=== PATIENT | female | born 1980 | race American Indian/Alaskan Native ===

== ENCOUNTER 2019-12-03 01:52 | Inpatient (IN) | payer MEDICARE ==
[2019-12-03] MEDS ORDERED: ALBUTEROL 2.5 MG/3 ML NEBU IH ONE (02:13)
[2019-12-03] MEDS ORDERED: methylPREDNISolone Sod Succinate 125 MG/2 ML INJ IV ONE (02:13)
[2019-12-03] MEDS ORDERED: NITROGLYCERIN 2% OINT 1 GM TP ONE (02:13)
[2019-12-03] MEDS ORDERED: IPRATROPIUM 0.02% NEBU 2.5 ML IH ONE (02:13)
--- NOTE | 2019-12-03 02:21 | Emergency Department Report ---
ED General Adult HPI - General Chief complaint: Dyspnea/Respdistress Stated complaint: SONI Time Seen by Provider: 12/03/19 01:57 Source: patient, EMS ( EMS documentation not available at time of chart dictation ), RN notes reviewed, old records reviewed Mode of arrival: Stretcher Limitations: Physical Limitation - History of Present Illness Initial comments: Nephrology: Dr Abdulaziz carranza Primary care doctor: Patient cannot remember Cardiology: Patient cannot remember Past medical history: Hypertension, end-stage renal disease on hemodialysis, Tuesday, Tuesday, Tuesday, COPD, admitted to this hospital last month for respiratory failure requiring intubation. Had a negative cardiac nuclear stress test, had a type II myocardial infarction, ejection fraction 45 to 50%, admitting diagnoses were acute hypoxemic respiratory failure, pulmonary edema, volume overload, sinus tachycardia, hypertensive urgency, hyperkalemia, anemia of chronic disease, tobacco use, marijuana use and anxiety Patient is a 39-year-old female who is not known to myself previously. It is currently Tuesday morning. She received hemodialysis on Tuesday. She indicates it was Her usual length and duration. She is brought to the hospital by emergency medical services for shortness of breath. Patient states that approximately 1 week after she was discharged from the hospital, she developed recurrent shortness of breath. Is typically at nighttime. She reports that she feels like she is not breathing well at night, and occasionally jerks up while breathing. This is intermittent, and typically painless. She recently saw her manufacturing support engineer, who put her on a medication for "cardiac asthma." She does not know the name of the medication. She does not know the name of the manufacturing support engineer. This evening, she was having shortness of breath, then chest tightness which did not radiate anywhere, and emergency medical services were contacted. Apparently they put her on CPAP. The patient is still on a BiPAP at this time. She denies vomiting, fever, she has abdominal cramping, she denies focal extremity weakness and or numbness. Currently, her breathing is still short as per the patient. -: Gradual Location: chest Radiation: non-radiation Quality: other Consistency: other Improves with: other Worsens with: other Associated Symptoms: other - Related Data Home Medications Medication Instructions Recorded Confirmed Last Taken ALPRAZolam 0.5 mg PO 3XW 10/31/19 12/03/19 10/27/19 10:00 Citalopram 20 mg PO DAILY 10/31/19 12/03/19 10/27/19 Lanthanum Carbonate 1,000 mg PO TID 10/31/19 12/03/19 10/27/19 17:00 Varenicline(Nf) [Chantix (Nf)] 0.5 mg PO DAILY 10/31/19 12/03/19 10/27/19 10:00 Isosorbide Mononitrate 30 mg PO QAM 12/03/19 12/03/19 Unknown Metoprolol [Lopressor TAB] 50 mg PO DAILY 12/03/19 12/03/19 Unknown Omeprazole 20 mg PO DAILY 12/03/19 12/03/19 Unknown lamoTRIgine [LaMICtal] 25 mg PO QDAY 12/03/19 12/03/19 Unknown megestroL [Megace] 20 mg PO QID 12/03/19 12/03/19 Unknown Previous Rx's Medication Instructions Recorded Last Taken Type traMADoL [Ultram] 50 mg PO Q6HR PRN #10 tablet 11/01/19 Unknown Rx Allergies Allergy/AdvReac Type Severity Reaction Status Date / Time No Known Allergies Allergy Verified 10/29/19 03:28 ED Review of Systems ROS: Stated complaint: SONI Other details as noted in HPI Constitutional: malaise. denies: fever Eyes: denies: eye discharge ENT: denies: congestion Respiratory: shortness of breath Cardiovascular: denies: syncope Gastrointestinal: denies: vomiting Genitourinary: as per HPI Musculoskeletal: myalgia Skin: as per HPI Neurological: as per HPI, weakness Psychiatric: as per HPI Hematological/Lymphatic: as per HPI ED Past Medical Hx - Past Medical History Previous Medical History?: Yes Hx Hypertension: Yes Hx Renal Disease: Yes (ESRD on dyalisis) Hx COPD: Yes - Surgical History Past Surgical History?: Yes Additional Surgical History: fistula left upper arm - Social History Smoking Status: Unknown if ever smoked - Medications Home Medications: Home Medications Medication Instructions Recorded Confirmed Last Taken Type ALPRAZolam 0.5 mg PO 3XW 10/31/19 12/03/19 10/27/19 10:00 History Citalopram 20 mg PO DAILY 10/31/19 12/03/19 10/27/19 History Lanthanum Carbonate 1,000 mg PO TID 10/31/19 12/03/19 10/27/19 17:00 History Varenicline(Nf) [Chantix (Nf)] 0.5 mg PO DAILY 10/31/19 12/03/19 10/27/19 10:00 History traMADoL [Ultram] 50 mg PO Q6HR PRN #10 tablet 11/01/19 12/03/19 Unknown Rx Isosorbide Mononitrate 30 mg PO QAM 12/03/19 12/03/19 Unknown History Metoprolol [Lopressor TAB] 50 mg PO DAILY 12/03/19 12/03/19 Unknown History Omeprazole 20 mg PO DAILY 12/03/19 12/03/19 Unknown History lamoTRIgine [LaMICtal] 25 mg PO QDAY 12/03/19 12/03/19 Unknown History megestroL [Megace] 20 mg PO QID 12/03/19 12/03/19 Unknown History ED Physical Exam - General General appearance: alert, anxious, lethargic, in distress, obese - Head Head exam: Present: atraumatic, normocephalic - Eye Eye exam: Present: normal appearance, EOMI. Absent: nystagmus - ENT ENT exam: Present: normal exam, mucous membranes moist, normal external ear exam - Neck Neck exam: Present: normal inspection, full ROM. Absent: tenderness, meningismus - Respiratory Respiratory exam: Present: respiratory distress, decreased breath sounds. Absent: wheezes, rales, rhonchi, stridor - Cardiovascular Cardiovascular Exam: Present: normal rhythm, tachycardia, normal heart sounds, JVD. Absent: systolic murmur, diastolic murmur, rubs, gallop - GI/Abdominal GI/Abdominal exam: Present: soft. Absent: distended, tenderness, guarding, rebound, rigid, pulsatile mass - Extremities Exam Extremities exam: Present: normal inspection, full ROM, other (2+ pulses noted in the bilateral upper and lower extremities. There is no palpable cord. negative Homans sign. Muscular compartments are soft. The pelvis is stable.). Absent: pedal edema, calf tenderness - Back Exam Back exam: Present: normal inspection, full ROM. Absent: tenderness, CVA tenderness (R), CVA tenderness (L), paraspinal tenderness, vertebral tenderness - Neurological Exam Neurological exam: Present: alert, other (There is no facial droop. The tongue is midline. Extraocular movements are intact bilaterally. There is 5 out of 5 strength in bilateral upper and lower extremities. Sensation is intact to light touch bilateral upper and lower extremities. ). Absent: motor sensory deficit - Psychiatric Psychiatric exam: Present: anxious - Skin Skin exam: Present: warm, dry, intact, normal color. Absent: rash ED Course Vital Signs 12/03/19 12/03/19 12/03/19 01:54 01:57 02:00 Temperature Pulse Rate 112 H 107 H Pulse Rate [ Bilateral Throughout] Respiratory 14 31 H Rate Respiratory Rate [Bilateral Throughout] Blood Pressure 166/102 166/102 180/102 O2 Sat by Pulse 97 98 100 Oximetry 12/03/19 12/03/19 12/03/19 02:10 02:16 02:23 Temperature Pulse Rate 100 H 98 H 99 H Pulse Rate [ Bilateral Throughout] Respiratory 24 23 Rate Respiratory Rate [Bilateral Throughout] Blood Pressure 180/102 197/98 197/98 O2 Sat by Pulse 100 100 Oximetry 12/03/19 12/03/19 12/03/19 02:29 02:30 02:35 Temperature 98.4 F Pulse Rate Pulse Rate [ 102 H Bilateral Throughout] Respiratory Rate Respiratory 24 Rate [Bilateral Throughout] Blood Pressure 160/107 O2 Sat by Pulse 100 Oximetry 12/03/19 12/03/19 12/03/19 02:46 03:16 03:30 Temperature Pulse Rate 96 H 94 H 94 H Pulse Rate [ Bilateral Throughout] Respiratory 22 24 27 H Rate Respiratory Rate [Bilateral Throughout] Blood Pressure 160/107 158/108 158/96 O2 Sat by Pulse 100 100 100 Oximetry 12/03/19 12/03/19 03:46 04:00 Temperature Pulse Rate 96 H Pulse Rate [ Bilateral Throughout] Respiratory 31 H 31 H Rate Respiratory Rate [Bilateral Throughout] Blood Pressure 158/96 161/89 O2 Sat by Pulse 100 100 Oximetry - Reevaluation(s) Reevaluation #1: 12/03/19 02:20 Differential diagnosis, including but not limited to: Fluid overload, hy perkalemia, azotemia, uremia, flash pulmonary edema, COPD exacerbation, anxiety, pneumonia Assessment and plan: 39-year-old female with acute on chronic shortness of breath, chest tightness, hypertensive, and tachycardic. She is currently on CPAP. We will treat her symptoms, transition her to BiPAP, obtain x-ray, screening laboratory studies, performed trial nitroglycerin, and then reassess. Reevaluation #2: 12/03/19 03:28 Patient not able to tolerate ABG procedure. Feeling improved on BiPAP. Laboratory studies reviewed and appreciated. X-ray suggests fluid o verload/pulmonary vascular congestion. Blood pressure in the 160s. Her life enrichment manager will be paged. Discussed with hospital physician, Dr. León, who has accepted the patient to the medical service for fluid overload, hypertensive urgency, and acute shortness of breath/COPD ED Medical Decision Making - Lab Data Result diagrams: 12/03/19 02:39 12/03/19 02:39 Vital Signs 12/03/19 01:57 Pulse Rate 112 H Respiratory 14 Rate Blood Pressure 166/102 O2 Sat by Pulse 98 Oximetry - EKG Data -: EKG Interpreted by Ma Rate: tachycardia - EKG Data 12/03/19 02:21 Sinus tachycardia, 108 bpm, normal axis, QTC prolonged, biphasic T waves V2, abnormal EKG, not a STEMI - Radiology Data Radiology results: pending, report reviewed, image reviewed Print Report Referring Physician: BETSY GARCIA Patient Name: FLOYD ADAMS Date of : 1980 Sex: Female Report Date: 2019-12-03 Report Status: Finalized Findings [facility] [address] [place] [address] XRay Report Signed Patient: FLOYD ADAMS MR#: [id number] : 1980 Acct:[id number] Age/Sex: 39 / F ADM Date: 12/03/19 Loc: ED Attending Dr: Ordering Physician: BETSY GARCIA MD Date of Service: 12/03/19 Procedure(s): XR chest 1V ap Accession Number(s): [id number] cc: BETSY GARCIA MD Fluoro Time In Minutes: CHEST 1 VIEW INDICATION / CLINICAL INFORMATION: Dyspnea. COMPARISON: 10/30/2019 FINDINGS: SUPPORT DEVICES: None. HEART / MEDIASTINUM: Cardiac silhouette appears slightly enlarged but stable. LUNGS / PLEURA: Pulmonary vascular congestion. Very small right pleural effusion. No evidence of pneumonia. No pneumothorax. ADDITIONAL FINDINGS: No significant additional findings. IMPRESSION: 1. Pulmonary vascular congestion without overt interstitial pulmonary edema. Small right pleural effusion. Signer Name: Keturah Mora MD Signed: 12/03/2019 4:05 AM Workstation Name: [id number] Transcribed By: Dictated By: Keturah Mora MD Electronically Authenticated By: Keturah Mora MD Signed Date/Time: 12/03/19 0405 Critical Care Time: Yes Critical care time in (mins) excluding proc time.: 35 Critical care attestation.: If time is entered above; I have spent that time in minutes in the direct care of this critically ill patient, excluding procedure time. ED Disposition Clinical Impression: End stage renal disease on dialysis, Volume overload, Hypertensive urgency, malignant Disposition: OP ADMIT IP TO THIS HOSP Is pt being admited?: Yes Does the pt Need Aspirin: Yes Condition: Stable Referrals: PRIMARY CARE, [Primary Care Provider] - 3-5 Days
[2019-12-03 02:56] LABS: Basophils # (Auto) 0.1 K/mm3 (0.0-0.1); Basophils % (Auto) 0.9 % (0.0-1.8); Eosinophils # (Auto) 0.2 K/mm3 (0.0-0.4); Eosinophils % (Auto) 2.9 % (0.0-4.3); Hematocrit 30.2 % (30.3-42.9); Hemoglobin 10.1 gm/dl (10.1-14.3); Lymphocytes # (Auto) 1.5 K/mm3 (1.2-5.4); Mean Corpuscular HGB Conc 33 % (30-34); Mean Corpuscular Volume 88 fl (79-97); Monocytes # (Auto) 0.7 K/mm3 (0.0-0.8); Platelet Count 321 K/mm3 (140-440); Red Blood Count 3.41 M/mm3 (3.65-5.03); Red Cell Distribution Width 17.5 % (13.2-15.2)
[2019-12-03 03:17] LABS: INR 1.03 (0.87-1.13); Partial Thromboplastin Time 27.6 Sec. (24.2-36.6)
[2019-12-03 03:23] LABS: Alanine Aminotransferase 49 units/L (7-56); Albumin 3.9 g/dL (3.9-5); BUN/Creatinine Ratio 5; Blood Urea Nitrogen 47 mg/dL (7-17); Calcium 9.2 mg/dL (8.4-10.2); Hemolysis Index 7
[2019-12-03] MEDS ORDERED: ASPIRIN 81 MG TAB CHEW PO ONE (03:29)
--- NOTE | 2019-12-03 04:10 | XRay Report ---
CHEST 1 VIEW INDICATION / CLINICAL INFORMATION: Dyspnea. COMPARISON: 10/30/2019 FINDINGS: SUPPORT DEVICES: None. HEART / MEDIASTINUM: Cardiac silhouette appears slightly enlarged but stable. LUNGS / PLEURA: Pulmonary vascular congestion. Very small right pleural effusion. No evidence of pneu monia. No pneumothorax. ADDITIONAL FINDINGS: No significant additional findings. IMPRESSION: 1. Pulmonary vascular congestion without overt interstitial pulmonary edema. Small right pleural effu beryl. Signer Name: Keturah Mora MD Signed: 12/03/2019 4:05 AM Workstation Name: [id number]
[2019-12-03] MEDS ORDERED: MORPHINE 2 MG/1 ML INJ IV PRN (05:16)
[2019-12-03] MEDS ORDERED: FUROSEMIDE 40 MG/4 ML INJ IV STA (05:16)
[2019-12-03] MEDS ORDERED: ONDANSETRON 4 MG/2 ML INJ IV PRN (05:16)
[2019-12-03] MEDS ORDERED: ALBUTEROL 2.5 MG/3 ML NEBU IH PRN (05:16)
[2019-12-03] MEDS ORDERED: NALOXONE 0.4 MG/1 ML INJ IV PRN (05:16)
[2019-12-03] MEDS ORDERED: ACETAMINOPHEN 325 MG TAB PO PRN (05:16)
[2019-12-03] MEDS ORDERED: hydrALAZINE 20 MG/1 ML INJ IV PRN (05:22)
--- NOTE | 2019-12-03 05:39 | History and Physical Report ---
History of Present Illness Date of examination: 12/03/19 Chief complaint: SOB History of present illness: Patient is a 39-year-old female with PMH of HTN, COPD, ESRD, on MWF regimen who presents with c/o sudden onset of SOB. She says she could barely breath. EMS was summoned and she was brought to the hospital. She reports that she last received hemodialysis on Tuesday, three days ago. She indicates it was Her usual FULL HD and that she completed the session and that she does not drink too much fluids. She is brought to the hospital by emergency medical services for shortness of breath. Patient states that approximately 1 week after she was discharged from the hospital, she developed recurrent shortness of breath. Is typically at nighttime. She reports that she feels like she is not breathing well at night, and occasionally jerks up while breathing. This is intermittent, and typically painless. She recently saw her botany laboratory assistant, who put her on a medication for "cardiac asthma." She does not know the name of the medication. She does not know the name of the botany laboratory assistant either. This evening, she was having shortness of breath, then chest tightness which did not radiate anywhere, and emergency medical services were contacted. Apparently they put her on CPAP. The patient is still on a BiPAP at this time. She denies dysuria, melena, hematochezia, hematemesis, vomiting, fever, she has abdominal cramping, she denies focal extremity weakness and or numbness. Currently, her breathing is still short as per the patient. OF note, pt was admitted to this hospital last month for respiratory failure requiring intubation. Past History Past Medical History: ESRD, hypertension Social history: smoking, full code Family history: hypertension Medications and Allergies Allergies Allergy/AdvReac Type Severity Reaction Status Date / Time No Known Allergies Allergy Verified 10/29/19 03:28 Home Medications Medication Instructions Recorded Confirmed Last Taken Type ALPRAZolam 0.5 mg PO 3XW 10/31/19 12/03/19 10/27/19 10:00 History Citalopram 20 mg PO DAILY 10/31/19 12/03/19 10/27/19 History Lanthanum Carbonate 1,000 mg PO TID 10/31/19 12/03/19 10/27/19 17:00 History Varenicline(Nf) [Chantix (Nf)] 0.5 mg PO DAILY 10/31/19 12/03/19 10/27/19 10:00 History traMADoL [Ultram] 50 mg PO Q6HR PRN #10 tablet 11/01/19 12/03/19 Unknown Rx Isosorbide Mononitrate 30 mg PO QAM 12/03/19 12/03/19 Unknown History Metoprolol [Lopressor TAB] 50 mg PO DAILY 12/03/19 12/03/19 Unknown History Omeprazole 20 mg PO DAILY 12/03/19 12/03/19 Unknown History lamoTRIgine [LaMICtal] 25 mg PO QDAY 12/03/19 12/03/19 Unknown History megestroL [Megace] 20 mg PO QID 12/03/19 12/03/19 Unknown History Active Meds: Active Medications Acetaminophen (Tylenol) 650 mg PO Q4H PRN PRN Reason: Pain MILD(1-3)/Fever >100.5/HERNANDES Albuterol (Proventil) 2.5 mg IH Q4HRT PRN PRN Reason: Shortness Of Breath Furosemide (Lasix) 40 mg IV ONCE STA Stop: 12/03/19 05:17 Hydralazine HCl (Apresoline) 20 mg IV Q4HR PRN PRN Reason: Hypertension Lamotrigine (Lamictal) 25 mg PO QDAY [facility] Megestrol Acetate (Megestrol) 20 mg PO QID [facility] Metoprolol Tartrate (Metoprolol) 50 mg PO DAILY [facility] Miscellaneous Medication (Alprazolam) 0.5 mg PO 3XW [facility] Miscellaneous Medication (Citalopram) 20 mg PO DAILY [facility] Miscellaneous Medication (Isosorbide Mononitrate [Isosorbide Mononitrate]) 30 mg PO QAM [facility] Miscellaneous Medication (Lanthanum Carbonate) 1,000 mg PO TID [facility] Miscellaneous Medication (Omeprazole [Omeprazole]) 20 mg PO DAILY [facility] Morphine Sulfate (Morphine) 2 mg IV Q4H PRN PRN Reason: Pain, Moderate (4-6) Naloxone HCl (Naloxone) 0.1 mg IV Q2MIN PRN PRN Reason: Res Rate </= 8 or 02 SAT < 92% Ondansetron HCl (Zofran) 4 mg IV Q8H PRN PRN Reason: Nausea And Vomiting Senna (Senokot) 8.6 mg PO Q12HR RYLIE Sodium Chloride (Sodium Chloride Flush Syringe 10 Ml) 10 ml IV BID RYLIE Sodium Chloride (Sodium Chloride Flush Syringe 10 Ml) 10 ml IV PRN PRN PRN Reason: LINE FLUSH Tramadol HCl (Ultram) 50 mg PO Q6HR PRN PRN Reason: PAIN Review of Systems Respiratory: shortness of breath Exam - Constitutional Vitals: Temp Pulse Resp BP Pulse Ox 98.4 F 87 15 145/84 100 12/03/19 02:29 12/03/19 04:30 12/03/19 04:30 12/03/19 04:30 12/03/19 04:30 General appearance: Present: mild distress - EENT Eyes: Present: PERRL ENT: hearing intact, clear oral mucosa - Neck Neck: Present: supple, normal ROM - Respiratory Respiratory effort: normal Respiratory: bilateral: CTA, rales, rhonchi - Cardiovascular Heart Sounds: Present: S1 & S2. Absent: rub, click - Extremities Extremities: pulses symmetrical, No edema Peripheral Pulses: within normal limits - Abdominal General gastrointestinal: Present: soft, non-tender, non-distended, normal bowel sounds Female genitourinary: Present: normal Results - Labs CBC & Chem 7: 12/03/19 02:39 12/03/19 02:39 Labs: Laboratory Last Values WBC 8.2 K/mm3 (4.5-11.0) 12/03/19 02:39 RBC 3.41 M/mm3 (3.65-5.03) L 12/03/19 02:39 Hgb 10.1 gm/dl (10.1-14.3) 12/03/19 02:39 Hct 30.2 % (30.3-42.9) L 12/03/19 02:39 MCV 88 fl (79-97) 12/03/19 02:39 MCH 30 pg (28-32) 12/03/19 02:39 MCHC 33 % (30-34) 12/03/19 02:39 RDW 17.5 % (13.2-15.2) H 12/03/19 02:39 Plt Count 321 K/mm3 (140-440) 12/03/19 02:39 Lymph % (Auto) 19.0 % (13.4-35.0) 12/03/19 02:39 [place] % (Auto) 8.0 % (0.0-7.3) H 12/03/19 02:39 Eos % (Auto) 2.9 % (0.0-4.3) 12/03/19 02:39 Baso % (Auto) 0.9 % (0.0-1.8) 12/03/19 02:39 Lymph # 1.5 K/mm3 (1.2-5.4) 12/03/19 02:39 [place] # 0.7 K/mm3 (0.0-0.8) 12/03/19 02:39 Eos # 0.2 K/mm3 (0.0-0.4) 12/03/19 02:39 Baso # 0.1 K/mm3 (0.0-0.1) 12/03/19 02:39 Seg Neutrophils % 69.2 % (40.0-70.0) 12/03/19 02:39 Seg Neutrophils # 5.7 K/mm3 (1.8-7.7) 12/03/19 02:39 PT 13.6 Sec. (12.2-14.9) 12/03/19 02:39 INR 1.03 (0.87-1.13) 12/03/19 02:39 APTT 27.6 Sec. (24.2-36.6) 12/03/19 02:39 Sodium 136 mmol/L (137-145) L 12/03/19 02:39 Potassium 4.7 mmol/L (3.6-5.0) 12/03/19 02:39 Chloride 91.0 mmol/L (98-107) L 12/03/19 02:39 Carbon Dioxide 25 mmol/L (22-30) 12/03/19 02:39 Anion Gap 25 mmol/L 12/03/19 02:39 BUN 47 mg/dL (7-17) H 12/03/19 02:39 Creatinine 10.2 mg/dL (0.7-1.2) H 12/03/19 02:39 Estimated GFR 5 ml/min 12/03/19 02:39 BUN/Creatinine Ratio 5 % 12/03/19 02:39 Glucose 101 mg/dL (65-100) H 12/03/19 02:39 Calcium 9.2 mg/dL (8.4-10.2) 12/03/19 02:39 Magnesium 2.20 mg/dL (1.7-2.3) 12/03/19 02:39 Magnesium 2.30 mg/dL (1.7-2.3) 12/03/19 02:39 Total Bilirubin 0.20 mg/dL (0.1-1.2) 12/03/19 02:39 AST 63 units/L (5-40) H 12/03/19 02:39 ALT 49 units/L (7-56) 12/03/19 02:39 Alkaline Phosphatase 87 units/L (35-129) 12/03/19 02:39 Total Creatine Kinase 53 units/L (30-135) 12/03/19 02:39 Troponin T < 0.010 ng/mL (0.00-0.029) 12/03/19 02:39 NT-Pro-B Natriuret Pep > 76859 pg/mL (0-450) H 12/03/19 02:39 Total Protein 6.4 g/dL (6.3-8.2) 12/03/19 02:39 Albumin 3.9 g/dL (3.9-5) 12/03/19 02:39 Albumin/Globulin Ratio 1.6 % 12/03/19 02:39 Assessment and Plan Assessment and plan: Acute Respiratory Failure with Hypoxia - Due to volume overload and pulm vascular congestion on CXR - BIpap use, IV lasix as well. - ED to notify Renal for need for urgent HD in this pt due for HD today HTN essential and uncontrolled - IV Hydralazine for effective control - HD will also help reduced BP ESRD - on MWF. -To continue HD as per Renal Tobacco Dependence - pt counseled on cessation - nicotine patch Prolonged Qt - at 514MS, rate related given tachycardia - reassess with a repeat which I have ordered Full code Advance Directives: Yes
[2019-12-03] MEDS ORDERED: FUROSEMIDE 40 MG/4 ML INJ IV ONE (06:00)
[2019-12-03] MEDS ORDERED: ALPRAZolam 0.5 MG TAB PO PRN (07:27)
[2019-12-03 07:58] LABS: Basophils % (Auto) 0.4 % (0.0-1.8); Eosinophils % (Auto) 0.1 % (0.0-4.3); Hematocrit 30.8 % (30.3-42.9); Lymphocytes # (Auto) 0.5 K/mm3 (1.2-5.4); Lymphocytes % (Auto) 7.6 % (13.4-35.0); Mean Corpuscular HGB Conc 33 % (30-34); Mean Corpuscular Volume 89 fl (79-97); Monocytes # (Auto) 0.1 K/mm3 (0.0-0.8); Monocytes % (Auto) 2.4 % (0.0-7.3); Platelet Count 311 K/mm3 (140-440); Red Blood Count 3.47 M/mm3 (3.65-5.03); Red Cell Distribution Width 17.8 % (13.2-15.2)
[2019-12-03 08:40] LABS: Calcium 9.5 mg/dL (8.4-10.2)
[2019-12-03] MEDS ORDERED: SODIUM CHLORIDE 0.9% 100 ML IV PRN (09:29)
[2019-12-03] MEDS ORDERED: NON-FORMULARY EACH (Alprazolam 0.5 MG) PO SCH (10:00)
[2019-12-03] MEDS: CITALOPRAM 20 MG TAB PO SCH (10:54)
[2019-12-03] MEDS: MEGESTROL 20 MG TAB PO SCH ×5 (10:54→21:26)
[2019-12-03] MEDS: LANTHANUM CARBONATE 500 MG TAB PO SCH ×4 (10:54→18:23)
[2019-12-03] MEDS: lamoTRIgine 25 MG TAB PO SCH ×2 (10:55→15:25)
[2019-12-03] MEDS: METOPROLOL TARTRATE 50 MG TAB PO SCH ×2 (10:55→18:29)
[2019-12-03] MEDS: PANTOPRAZOLE 20 MG TAB PO SCH (10:55)
[2019-12-03] MEDS: SENNOSIDES 8.6 MG TAB PO SCH ×2 (10:55→21:26)
[2019-12-03] MEDS ORDERED: SODIUM CHLORIDE*PRIMING MACHINE ONLY FOR DIALYSIS MC ONE (11:32)
[2019-12-03] MEDS: EPOETIN ALFA 10,000 UNIT/1 ML INJ IV PRN (13:02)
[2019-12-03 13:52] LABS: Hepatitis B Surface Antigen Non-Reactive (Negative); Hepatitis C Virus Antibody Non-Reactive (NonReactive)
--- NOTE | 2019-12-03 14:18 | Consultation ---
History of Present Illness - Reason for Consult end stage renal disease - History of Present Illness Pleasant 39 y/o AAF with h/o ESRD secondary to HTN, well known to our outpatient dialysis unit, as she dialyzes at [facility], presented to the ED secondary to worsening shortness of breath over the past 2-3 days. Patient was seen after her dialysis treatment today, with ~ 3L UF removed. She did complain of mild cramping during her session, but it seems that with the adequate fluid removal, her respiratory status has improved. She typically dialyzes on a MWF HD schedule, and denies any recently missed HD sessions. Patient is also closely following up with Cardiology. She has a functional LUE AVF. Past History Past Medical History: ESRD, hypertension Social history: smoking, full code Family history: hypertension Medications and Allergies Allergies Allergy/AdvReac Type Severity Reaction Status Date / Time No Known Allergies Allergy Verified 10/29/19 03:28 Home Medications Medication Instructions Recorded Confirmed Last Taken Type ALPRAZolam 0.5 mg PO 3XW 10/31/19 12/03/19 10/27/19 10:00 History Citalopram 20 mg PO DAILY 10/31/19 12/03/19 10/27/19 History Lanthanum Carbonate 1,000 mg PO TID 10/31/19 12/03/19 10/27/19 17:00 History Varenicline(Nf) [Chantix (Nf)] 0.5 mg PO DAILY 10/31/19 12/03/19 10/27/19 10:00 History traMADoL [Ultram] 50 mg PO Q6HR PRN #10 tablet 11/01/19 12/03/19 Unknown Rx Isosorbide Mononitrate 30 mg PO QAM 12/03/19 12/03/19 Unknown History Metoprolol [Lopressor TAB] 50 mg PO DAILY 12/03/19 12/03/19 Unknown History Omeprazole 20 mg PO DAILY 12/03/19 12/03/19 Unknown History lamoTRIgine [LaMICtal] 25 mg PO QDAY 12/03/19 12/03/19 Unknown History megestroL [Megace] 20 mg PO QID 12/03/19 12/03/19 Unknown History Active Meds: Active Medications Acetaminophen (Tylenol) 650 mg PO Q4H PRN PRN Reason: Pain MILD(1-3)/Fever >100.5/HERNANDES Last Admin: 12/03/19 11:32 Dose: 650 mg Documented by: Albuterol (Proventil) 2.5 mg IH Q4HRT PRN PRN Reason: Shortness Of Breath Albuterol/Ipratropium (Duoneb *Not For Prn Use*) 1 ampul IH Q6HRT [facility] Alprazolam (Xanax) 0.5 mg PO MoWeFr PRN PRN Reason: Anxiety WITH HEMODIALYSIS Citalopram Hydrobromide (Celexa) 20 mg PO QAM [facility] Last Admin: 12/03/19 10:54 Dose: Not Given Documented by: Epoetin Perfecto (Procrit) 10,000 unit IV LEWIS PRN PRN Reason: hemodialysis Last Admin: 12/03/19 13:02 Dose: 10,000 unit Documented by: Hydralazine HCl (Apresoline) 20 mg IV Q4H PRN PRN Reason: Hypertension Sodium Chloride (Nacl 0.9%) 100 mls @ 999 mls/hr IV LEWIS PRN PRN Reason: Hypotension Isosorbide Mononitrate (Imdur) 30 mg PO QAM [facility] Last Admin: 12/03/19 10:54 Dose: Not Given Documented by: Lamotrigine (Lamictal) 25 mg PO QDAY [facility] Last Admin: 12/03/19 10:55 Dose: Not Given Documented by: Lanthanum Carbonate (Fosrenol) 1,000 mg PO TIDWM [facility] Last Admin: 12/03/19 13:20 Dose: Not Given Documented by: Megestrol Acetate (Megestrol) 20 mg PO 0730,1130,1630,2200 [facility] Last Admin: 12/03/19 13:20 Dose: Not Given Documented by: Methylprednisolone Sodium Succinate (Solu-Medrol) 40 mg IV Q8HR [facility] Metoprolol Tartrate (Metoprolol) 50 mg PO DAILY [facility] Last Admin: 12/03/19 10:55 Dose: Not Given Documented by: Morphine Sulfate (Morphine) 2 mg IV Q4H PRN PRN Reason: Pain, Moderate (4-6) Naloxone HCl (Naloxone) 0.1 mg IV Q2MIN PRN PRN Reason: Res Rate </= 8 or 02 SAT < 92% Ondansetron HCl (Zofran) 4 mg IV Q8H PRN PRN Reason: Nausea And Vomiting Pantoprazole Sodium (Protonix) 20 mg PO QDAY [facility] Last Admin: 12/03/19 10:55 Dose: Not Given Documented by: Senna (Senokot) 8.6 mg PO Q12HR [facility] Last Admin: 12/03/19 10:55 Dose: Not Given Documented by: Sodium Chloride (Sodium Chloride Flush Syringe 10 Ml) 10 ml IV BID [facility] Last Admin: 12/03/19 10:55 Dose: Not Given Documented by: Sodium Chloride (Sodium Chloride Flush Syringe 10 Ml) 10 ml IV PRN PRN PRN Reason: LINE FLUSH Tramadol HCl (Ultram) 50 mg PO Q6H PRN PRN Reason: PAIN (4-6) Review of Systems All systems: negative Constitutional: fatigue, weakness Cardiovascular: orthopnea, dyspnea on exertion Exam - Vital Signs Vital signs: Vital Signs BP Pulse Ox 166/102 97 12/03/19 01:54 12/03/19 01:54 - General Appearance General appearance: well-developed, well-nourished, appears stated age EENT: ATNC, PERRL Neck: Present: neck supple, trachea midline Respiratory: Decreased Breath Sounds Heart: regular, normal heart rate, S1S2 Gastrointestinal: Present: normal, normoactive bowel sounds Integumentary: no rash, warm and dry Neurologic: no focal deficit, no asterixis, alert and oriented x3 Musculoskeletal: Present: deferred Psychiatric: mood/affect appropriate, cooperative Results - Lab Results 12/03/19 07:26 12/03/19 07:26 Most recent lab results Calcium 9.5 mg/dL (8.4-10.2) 12/03/19 07:26 Magnesium 2.20 mg/dL (1.7-2.3) 12/03/19 02:39 Magnesium 2.30 mg/dL (1.7-2.3) 12/03/19 02:39 Assessment and Plan - Patient Problems (1) End stage renal disease on dialysis Current Visit: Yes Status: Chronic Plan to address problem: Maintain on an inpatient MWF HD schedule. (2) Volume overload Current Visit: Yes Status: Acute Plan to address problem: Will optimize volume status with adequate UF during hemodialysis. (3) Hyperkalemia, diminished renal excretion Current Visit: No Status: Acute Plan to address problem: Counseled patient on the importance of a low K diet. Will dialyze on a 2K dialysate bath. (4) Hypertensive chronic kidney disease with stage 5 chronic kidney disease or end stage renal disease Current Visit: Yes Status: Chronic Plan to address problem: Monitor on current regimen. (5) Anemia in ESRD (end-stage renal disease) Current Visit: No Status: Chronic Plan to address problem: TYLER therapy with HD.
[2019-12-03] MEDS: traMADol 50 MG TAB PO PRN (15:12)
[2019-12-03] MEDS: methylPREDNISolone Sod Succinate 40 MG/1 ML INJ IV SCH ×2 (15:14→21:26)
--- NOTE | 2019-12-03 15:41 | Event Note ---
Date: 12/03/19 Patient seen and examined receiving HD Patient is a 39-year-old female with PMH of HTN, COPD, ESRD, on MWF regimen who presents with c/o sudden onset of SOB. She says she could barely breath. EMS was summoned and she was brought to the hospital. She reports that she last received hemodialysis on Tuesday, three days ago. Cont current Mx and plan, has h/o extensive smoking - counselled
[2019-12-03] MEDS: IPRATROPIUM/ALBUTEROL SULFATE 3 ML AMPUL.NEB IH SCH ×2 (18:03→20:49)
[2019-12-03] MEDS: diphenhydrAMINE 25 MG CAP PO PRN (23:47)
[2019-12-04 05:37] LABS: Calcium 9.4 mg/dL (8.4-10.2)
[2019-12-04] MEDS: methylPREDNISolone Sod Succinate 40 MG/1 ML INJ IV SCH ×3 (06:22→21:17)
--- NOTE | 2019-12-04 08:46 | Progress Note ---
Assessment and Plan - Patient Problems (1) End stage renal disease on dialysis Current Visit: Yes Status: Chronic Plan to address problem: Maintain on an inpatient MWF HD schedule. From nephrology standpoint patient is stable for discharge. (2) Volume overload Current Visit: Yes Status: Acute Plan to address problem: Will optimize volume status with adequate UF during hemodialysis. Currently euvolemic on exam without any supplemental oxygen requirements this morning. (3) Hyperkalemia, diminished renal excretion Current Visit: No Status: Acute Plan to address problem: Counseled patient on the importance of a low K diet. (4) Hypertensive chronic kidney disease with stage 5 chronic kidney disease or end stage renal disease Current Visit: Yes Status: Chronic Plan to address problem: Monitor on current regimen. (5) Anemia in ESRD (end-stage renal disease) Current Visit: No Status: Chronic Plan to address problem: TYLER therapy with HD. Subjective Date of service: 12/04/19 Interval history: Tolerated HD well, respiratory status improved, vitals stable. Removed ~ 3L UF yesterday. Objective - Vital Signs Vital signs: Vital Signs - 12hr 12/03/19 12/03/19 12/04/19 20:52 20:58 05:06 Temperature 98.7 F Respiratory 16 Rate Blood Pressure 139/82 O2 Sat by Pulse 100 99 Oximetry 12/04/19 08:05 Temperature Respiratory Rate Blood Pressure O2 Sat by Pulse 98 Oximetry - General Appearance General appearance: well-developed, well-nourished, appears stated age EENT: ATNC, PERRL Neck: no JVD, no thyromegaly Respiratory: Present: Clear to Ascultation Cardiology: regular, S1S2 Gastrointestinal: normal, normoactive bowel sounds Integumentary: no rash, warm and dry Neurologic: no focal deficit, alert and oriented x3 Musculoskeletal: deferred Psychiatric: cooperative - Lab 12/03/19 07:26 12/04/19 04:30 Most recent lab results Calcium 9.4 mg/dL (8.4-10.2) 12/04/19 04:30 Magnesium 2.20 mg/dL (1.7-2.3) 12/03/19 02:39 Magnesium 2.30 mg/dL (1.7-2.3) 12/03/19 02:39 - Allied health notes Allied health notes reviewed: nursing Medications & Allergies - Medications Allergies/Adverse Reactions: Allergies No Known Allergies Allergy (Verified 10/29/19 03:28) Home Medications: Home Medications Medication Instructions Recorded Confirmed Last Taken Type ALPRAZolam 0.5 mg PO 3XW 10/31/19 12/03/19 10/27/19 10:00 History Citalopram 20 mg PO DAILY 10/31/19 12/03/19 10/27/19 History Lanthanum Carbonate 1,000 mg PO TID 10/31/19 12/03/19 10/27/19 17:00 History Varenicline(Nf) [Chantix (Nf)] 0.5 mg PO DAILY 10/31/19 12/03/19 10/27/19 10:00 History traMADoL [Ultram] 50 mg PO Q6HR PRN #10 tablet 11/01/19 12/03/19 Unknown Rx Isosorbide Mononitrate 30 mg PO QAM 12/03/19 12/03/19 Unknown History Metoprolol [Lopressor TAB] 50 mg PO DAILY 12/03/19 12/03/19 Unknown History Omeprazole 20 mg PO DAILY 12/03/19 12/03/19 Unknown History lamoTRIgine [LaMICtal] 25 mg PO QDAY 12/03/19 12/03/19 Unknown History megestroL [Megace] 20 mg PO QID 12/03/19 12/03/19 Unknown History Active Medications: Generic Name Dose Route Start Last Admin Trade Name Freq PRN Reason Stop Dose Admin Acetaminophen 650 mg 12/03/19 05:16 12/03/19 11:32 Tylenol PO 650 mg Q4H PRN Administration Pain MILD(1-3)/Fever >100.5/HERNANDES Albuterol 2.5 mg 12/03/19 05:16 Proventil IH Q4HRT PRN Shortness Of Breath Alprazolam 0.5 mg 12/03/19 07:27 Xanax PO MoWeFr PRN Anxiety WITH HEMODIALYSIS Citalopram Hydrobromide 20 mg 12/03/19 10:00 12/03/19 10:54 Celexa PO Not Given QAM RYLIE Diphenhydramine HCl 50 mg 12/03/19 23:20 12/03/19 23:47 Benadryl PO 50 mg Q6H PRN Administration Itching Epoetin Perfecto 10,000 unit 12/03/19 09:29 12/03/19 13:02 Procrit IV 10,000 unit LEWIS PRN Administration hemodialysis Hydralazine HCl 20 mg 12/03/19 05:22 Apresoline IV Q4H PRN Hypertension Sodium Chloride 100 mls @ 999 mls/hr 12/03/19 09:29 Nacl 0.9% IV LEWIS PRN Hypotension Isosorbide Mononitrate 30 mg 12/03/19 10:00 12/03/19 18:29 Imdur PO 30 mg QAM RYLIE Administration Lamotrigine 25 mg 12/03/19 10:00 12/03/19 15:25 Lamictal PO 25 mg QDAY RYLIE Administration Lanthanum Carbonate 1,000 mg 12/03/19 08:00 12/03/19 18:23 Fosrenol PO 1,000 mg TIDWM RYLIE Administration Megestrol Acetate 20 mg 12/03/19 07:30 12/03/19 21:26 Megestrol PO 20 mg 0730,1130,1630,2200 RYLIE Administration Methylprednisolone Sodium Succinate 40 mg 12/03/19 14:00 12/04/19 06:22 Solu-Medrol IV 40 mg Q8HR RYLIE Administration Metoprolol Tartrate 50 mg 12/03/19 10:00 12/03/19 18:29 Metoprolol PO 50 mg DAILY RYLIE Administration Morphine Sulfate 2 mg 12/03/19 05:16 Morphine IV Q4H PRN Pain, Moderate (4-6) Naloxone HCl 0.1 mg 12/03/19 05:16 Naloxone IV Q2MIN PRN Res Rate </= 8 or 02 SAT < 92% Ondansetron HCl 4 mg 12/03/19 05:16 Zofran IV Q8H PRN Nausea And Vomiting Pantoprazole Sodium 20 mg 12/03/19 10:00 12/03/19 10:55 Protonix PO Not Given QDAY RYLIE Senna 8.6 mg 12/03/19 10:00 12/03/19 21:26 Senokot PO 8.6 mg Q12HR RYLIE Administration Sodium Chloride 10 ml 12/03/19 10:00 12/03/19 21:26 Sodium Chloride Flush Syringe 10 Ml IV 10 ml BID RYLIE Administration Sodium Chloride 10 ml 12/03/19 05:16 Sodium Chloride Flush Syringe 10 Ml IV PRN PRN LINE FLUSH Tramadol HCl 50 mg 12/03/19 05:19 12/03/19 15:12 Ultram PO 50 mg Q6H PRN Administration PAIN (4-6)
[2019-12-04] MEDS: LANTHANUM CARBONATE 500 MG TAB PO SCH ×3 (09:16→17:56)
[2019-12-04] MEDS: PANTOPRAZOLE 20 MG TAB PO SCH (09:16)
[2019-12-04] MEDS: SENNOSIDES 8.6 MG TAB PO SCH ×2 (09:16→21:19)
[2019-12-04] MEDS: CITALOPRAM 20 MG TAB PO SCH (09:16)
[2019-12-04] MEDS: MEGESTROL 20 MG TAB PO SCH ×4 (09:17→21:19)
[2019-12-04] MEDS: METOPROLOL TARTRATE 50 MG TAB PO SCH (09:17)
[2019-12-04] MEDS: traMADol 50 MG TAB PO PRN (10:14)
[2019-12-04] MEDS: lamoTRIgine 25 MG TAB PO SCH (10:17)
--- NOTE | 2019-12-04 13:33 | Progress Note ---
Assessment and Plan Acute Respiratory Failure with Hypoxia - Due to volume overload pulm vascular congestion on CXR, also might have underlying COPD with extensive h/o smoking - s/p BIpap use, given IV lasix as well. - s/p urgent HD yesterday, cont nebs - will need home O2 HTN, essential and uncontrolled - IV Hydralazine for effective control - cont home meds, ESRD - on MWF. -To continue HD as per Renal Tobacco Dependence - pt counseled on cessation - nicotine patch Prolonged Qt - at 514MS, rate related given tachycardia - cont to monitor Acute COPD exacerbation, has long h/o smoking - cont nebs, steroid, supplemental O2 - need PFT outpt Hyperkalemia, cont to monitor, kayexalate as needed Dvt Px, heparin Full code Advance Directives: Yes Subjective Date of service: 12/04/19 Interval history: Patient seen and examined c/o SOB with ambulation, feeling better, had HD yesterday will need home O2 on discharge Counselled to quit smoking and to be complaint with Hd Objective - Constitutional Vitals: Vital Signs - 12hr 12/04/19 12/04/19 12/04/19 05:06 08:00 08:05 Temperature 98.7 F Pulse Rate Respiratory 16 16 Rate Blood Pressure 139/82 O2 Sat by Pulse 96 98 Oximetry 12/04/19 12/04/19 12/04/19 09:17 09:19 10:20 Temperature Pulse Rate 89 87 Respiratory Rate Blood Pressure 142/85 142/85 131/75 O2 Sat by Pulse Oximetry 12/04/19 11:37 Temperature 98.5 F Pulse Rate 86 Respiratory 14 Rate Blood Pressure 129/77 O2 Sat by Pulse 100 Oximetry General appearance: Present: no acute distress, well-nourished - EENT Eyes: PERRL, EOM intact ENT: hearing intact, clear oral mucosa Ears: bilateral: normal - Neck Neck: supple, normal ROM - Respiratory Respiratory effort: normal Respiratory: bilateral: rales - Cardiovascular Rhythm: regular Heart Sounds: Present: S1 & S2. Absent: gallop, rub Extremities: pulses intact, No edema, normal color, Full ROM - Gastrointestinal General gastrointestinal: Present: soft, non-tender, non-distended, normal bowel sounds - Integumentary Integumentary: clear, warm, dry - Musculoskeletal Musculoskeletal: 1, strength equal bilaterally - Neurologic Neurologic: moves all extremities - Psychiatric Psychiatric: memory intact, appropriate mood/affect, intact judgment & insight - Labs CBC & Chem 7: 12/03/19 07:26 12/04/19 04:30 Labs: Abnormal lab results 12/04/19 Range/Units 04:30 Potassium 5.1 H (3.6-5.0) mmol/L Chloride 95.7 L (98-107) mmol/L BUN 35 H (7-17) mg/dL Creatinine 6.6 H (0.7-1.2) mg/dL Glucose 156 H (65-100) mg/dL
[2019-12-04] MEDS ORDERED: ALUM-MAG HYDROXIDE-SIMETHICONE 200-200-20MG/5ML ORAL LIQD 30 ML PO PRN (18:15)
[2019-12-04] MEDS: diphenhydrAMINE 25 MG CAP PO PRN (21:18)
[2019-12-05] MEDS: methylPREDNISolone Sod Succinate 40 MG/1 ML INJ IV SCH ×2 (05:27→14:12)
[2019-12-05] MEDS: MEGESTROL 20 MG TAB PO SCH ×2 (07:58→12:09)
[2019-12-05] MEDS: LANTHANUM CARBONATE 500 MG TAB PO SCH ×2 (07:58→12:09)
[2019-12-05] MEDS ORDERED: SODIUM CHLORIDE 0.9% 1000 ML 2,000 ML ONE (10:06)
--- NOTE | 2019-12-05 10:35 | Progress Note ---
Assessment and Plan - Patient Problems (1) End stage renal disease on dialysis Current Visit: Yes Status: Chronic Plan to address problem: Maintain on an inpatient MWF HD schedule. From nephrology standpoint patient is stable for discharge. (2) Volume overload Current Visit: Yes Status: Acute Plan to address problem: Will optimize volume status with adequate UF during hemodialysis. . (3) Hyperkalemia, diminished renal excretion Current Visit: No Status: Acute Plan to address problem: Counseled patient on the importance of a low K diet. (4) Hypertensive chronic kidney disease with stage 5 chronic kidney disease or end stage renal disease Current Visit: Yes Status: Chronic Plan to address problem: Monitor on current regimen. (5) Anemia in ESRD (end-stage renal disease) Current Visit: No Status: Chronic Plan to address problem: TYLER therapy with HD. Subjective Date of service: 12/05/19 Interval history: No acute issues overnight. Being set up for home O2. Seen at HD today am without any acute complaints, Objective - Vital Signs Vital signs: Vital Signs - 12hr 12/04/19 12/05/19 12/05/19 22:57 04:41 09:11 Temperature 98.6 F Pulse Rate Respiratory 20 Rate Blood Pressure 138/87 O2 Sat by Pulse 100 99 Oximetry 12/05/19 12/05/19 12/05/19 09:30 09:35 09:44 Temperature 97.7 F 98.1 F Pulse Rate 63 88 83 Respiratory 16 18 Rate Blood Pressure 160/89 152/94 156/92 O2 Sat by Pulse Oximetry 12/05/19 12/05/19 12/05/19 09:50 10:00 10:15 Temperature Pulse Rate 63 80 79 Respiratory Rate Blood Pressure 160/89 146/82 151/86 O2 Sat by Pulse Oximetry - General Appearance General appearance: well-developed, well-nourished, appears stated age EENT: ATNC, PERRL Neck: no JVD, no thyromegaly Respiratory: Present: Clear to Ascultation Cardiology: regular Gastrointestinal: normal, normoactive bowel sounds Integumentary: no rash, warm and dry Neurologic: no focal deficit, alert and oriented x3 Psychiatric: mood/affect appropriate, cooperative - Lab 12/03/19 07:26 12/04/19 04:30 Most recent lab results Calcium 9.4 mg/dL (8.4-10.2) 12/04/19 04:30 Magnesium 2.20 mg/dL (1.7-2.3) 12/03/19 02:39 Magnesium 2.30 mg/dL (1.7-2.3) 12/03/19 02:39 - Allied health notes Allied health notes reviewed: nursing Medications & Allergies - Medications Allergies/Adverse Reactions: Allergies No Known Allergies Allergy (Verified 10/29/19 03:28) Home Medications: Home Medications Medication Instructions Recorded Confirmed Last Taken Type ALPRAZolam 0.5 mg PO 3XW 10/31/19 12/03/19 10/27/19 10:00 History Citalopram 20 mg PO DAILY 10/31/19 12/03/19 10/27/19 History Lanthanum Carbonate 1,000 mg PO TID 10/31/19 12/03/19 10/27/19 17:00 History Varenicline(Nf) [Chantix (Nf)] 0.5 mg PO DAILY 10/31/19 12/03/19 10/27/19 10:00 History traMADoL [Ultram] 50 mg PO Q6HR PRN #10 tablet 11/01/19 12/03/19 Unknown Rx Isosorbide Mononitrate 30 mg PO QAM 12/03/19 12/03/19 Unknown History Metoprolol [Lopressor TAB] 50 mg PO DAILY 12/03/19 12/03/19 Unknown History Omeprazole 20 mg PO DAILY 12/03/19 12/03/19 Unknown History lamoTRIgine [LaMICtal] 25 mg PO QDAY 12/03/19 12/03/19 Unknown History megestroL [Megace] 20 mg PO QID 12/03/19 12/03/19 Unknown History Active Medications: Generic Name Dose Route Start Last Admin Trade Name Freq PRN Reason Stop Dose Admin Acetaminophen 650 mg 12/03/19 05:16 12/03/19 11:32 Tylenol PO 650 mg Q4H PRN Administration Pain MILD(1-3)/Fever >100.5/HERNANDES Al Hydrox/Mg Hydrox/Simethicone 30 ml 12/04/19 18:15 12/04/19 18:27 Alum-Mag Hydrox-Simeth 581-237-37ab/5ml PO 30 ml Q4H PRN Administration Indigestion Albuterol 2.5 mg 12/03/19 05:16 Proventil IH Q4HRT PRN Shortness Of Breath Alprazolam 0.5 mg 12/03/19 07:27 12/05/19 10:00 Xanax PO 0.5 mg MoWeFr PRN Administration Anxiety WITH HEMODIALYSIS Citalopram Hydrobromide 20 mg 12/03/19 10:00 12/04/19 09:16 Celexa PO 20 mg QAM RYLIE Administration Diphenhydramine HCl 50 mg 12/03/19 23:20 12/04/19 21:18 Benadryl PO 50 mg Q6H PRN Administration Itching Epoetin Perfecto 10,000 unit 12/03/19 09:29 12/03/19 13:02 Procrit IV 10,000 unit LEWIS PRN Administration hemodialysis Hydralazine HCl 20 mg 12/03/19 05:22 Apresoline IV Q4H PRN Hypertension Sodium Chloride 100 mls @ 999 mls/hr 12/03/19 09:29 Nacl 0.9% IV LEWIS PRN Hypotension Isosorbide Mononitrate 30 mg 12/03/19 10:00 12/04/19 10:20 Imdur PO 30 mg QAM RYLIE Administration Lamotrigine 25 mg 12/03/19 10:00 12/04/19 10:17 Lamictal PO 25 mg QDAY RYLIE Administration Lanthanum Carbonate 1,000 mg 12/03/19 08:00 12/05/19 07:58 Fosrenol PO 1,000 mg TIDWM RYLIE Administration Megestrol Acetate 20 mg 12/03/19 07:30 12/05/19 07:58 Megestrol PO 20 mg 0730,1130,1630,2200 RYLIE Administration Methylprednisolone Sodium Succinate 40 mg 12/03/19 14:00 12/05/19 05:27 Solu-Medrol IV 40 mg Q8HR RYLIE Administration Metoprolol Tartrate 50 mg 12/03/19 10:00 12/04/19 09:17 Metoprolol PO 50 mg DAILY RYLIE Administration Morphine Sulfate 2 mg 12/03/19 05:16 Morphine IV Q4H PRN Pain, Moderate (4-6) Naloxone HCl 0.1 mg 12/03/19 05:16 Naloxone IV Q2MIN PRN Res Rate </= 8 or 02 SAT < 92% Ondansetron HCl 4 mg 12/03/19 05:16 Zofran IV Q8H PRN Nausea And Vomiting Pantoprazole Sodium 20 mg 12/03/19 10:00 12/04/19 09:16 Protonix PO 20 mg QDAY RYLIE Administration Senna 8.6 mg 12/03/19 10:00 12/04/19 21:19 Senokot PO 8.6 mg Q12HR RYLIE Administration Sodium Chloride 10 ml 12/03/19 10:00 12/04/19 21:20 Sodium Chloride Flush Syringe 10 Ml IV 10 ml BID RYLIE Administration Sodium Chloride 10 ml 12/03/19 05:16 Sodium Chloride Flush Syringe 10 Ml IV PRN PRN LINE FLUSH Tramadol HCl 50 mg 12/03/19 05:19 12/04/19 10:14 Ultram PO 50 mg Q6H PRN Administration PAIN (4-6)
[2019-12-05] MEDS: EPOETIN ALFA 10,000 UNIT/1 ML INJ IV PRN (12:07)
--- NOTE | 2019-12-05 12:33 | Discharge Summary ---
Providers - Providers Date of Admission: 12/03/19 04:50 Date of discharge: 12/05/19 Attending physician: TITUS NINA 12/03/19 02:14 Consult to Physician [CONS] Urgent Comment: Consulting Provider: ASHLEY MELENDEZ Physician Instructions: Reason For Exam: esrd Primary care physician: [employer] Hospitalization Condition: Stable Pertinent studies: CXR Hospital course: Discharge diagnosis and Mx: Acute Respiratory Failure with Hypoxia - Due to volume overload pulm vascular congestion on CXR, also might have underlying COPD with extensive h/o smoking - s/p BIpap use, given IV lasix as well. - s/p urgent HD, cont nebs - will need home O2 HTN, essential and uncontrolled - IV Hydralazine for effective control - cont home meds, ESRD - on MWF. -To continue HD as per Renal Tobacco Dependence - pt counseled on cessation - nicotine patch Prolonged Qt - at 514MS, rate related given tachycardia - cont to monitor Acute COPD exacerbation, has long h/o smoking - cont nebs, steroid, supplemental O2 - need PFT outpt Hyperkalemia, cont to monitor, kayexalate as needed Dvt Px, heparin Disposition: DC-30 STILL A PATIENT Time spent for discharge: 34 minutes Core Measure Documentation - Palliative Care Palliative Care/ Comfort Measures: Not Applicable Exam - Constitutional Vitals: Temp Pulse Resp BP Pulse Ox 98.1 F 72 18 146/81 99 12/05/19 09:35 12/05/19 12:00 12/05/19 09:35 12/05/19 12:00 12/05/19 09:11 General appearance: Present: no acute distress, well-nourished - EENT Eyes: Present: PERRL ENT: hearing intact, clear oral mucosa - Neck Neck: Present: supple, normal ROM - Respiratory Respiratory effort: normal Respiratory: bilateral: CTA - Cardiovascular Heart Sounds: Present: S1 & S2. Absent: rub, click - Extremities Extremities: pulses symmetrical, No edema Peripheral Pulses: within normal limits - Abdominal General gastrointestinal: Present: soft, non-tender, non-distended, normal bowel sounds - Integumentary Integumentary: Present: clear, warm, dry - Musculoskeletal Musculoskeletal: gait normal, strength equal bilaterally - Psychiatric Psychiatric: appropriate mood/affect, intact judgment & insight - Neurologic Neurologic: CNII-XII intact, moves all extremities Plan Activity: advance as tolerated Weight Bearing Status: Weight Bear as Tolerated Diet: renal Special Instructions: restrict fluid intake to (1.2 L daily), home oxygen via (n/c) Follow up with: PRIMARY CARE, [Primary Care Provider] - 3-5 Days Prescriptions: Prednisone [predniSONE 10 mg (6-Day Pack, 21 Tabs)] 10 mg PO .TAPER #1 tab.ds.pk Albuterol Sulfate [Proventil Hfa] 6.7 gm IH Q6H #1 hfa.aer.ad
[2019-12-05] MEDS: diphenhydrAMINE 25 MG CAP PO PRN (14:12)
[2019-12-05] MEDS: METOPROLOL TARTRATE 50 MG TAB PO SCH (14:13)
[2019-12-05] MEDS: CITALOPRAM 20 MG TAB PO SCH (14:13)
[2019-12-05] MEDS: PANTOPRAZOLE 20 MG TAB PO SCH (14:13)
[2019-12-05 14:14] VITALS: BP 140/80
[2019-12-05] MEDS: traMADol 50 MG TAB PO PRN (14:14)
[2019-12-05] MEDS: SENNOSIDES 8.6 MG TAB PO SCH (14:14)
[2019-12-05] MEDS: lamoTRIgine 25 MG TAB PO SCH (14:16)
[2019-12-05 14:27] LABS: Calcium 9.5 mg/dL (8.4-10.2)
== END 2019-12-05 16:00 | disposition home or self-care (01) | DRG 189 ==
LOC: ED 01:52 → 3A 04:50
PROVIDERS: ADMIT Hospitalist; ATTEND Internal Medicine
PROC: 4A033R1 Measurement of Arterial Saturation, Peripheral, Percutaneous Approach (ICD-10-PCS; principal; 2019-12-03)
PROC: 5A1D70Z Performance of Urinary Filtration, Intermittent, Less than 6 Hours Per Day (ICD-10-PCS; 2019-12-03)
PROC: 5A09357 Assistance with Respiratory Ventilation, Less than 24 Consecutive Hours, Continuous Positive Airway Pressure (ICD-10-PCS; 2019-12-03)
PROC: 5A1D70Z Performance of Urinary Filtration, Intermittent, Less than 6 Hours Per Day (ICD-10-PCS; 2019-12-05)
DX: J96.01 Acute respiratory failure with hypoxia (principal); N18.6 End stage renal disease; J44.1 Chronic obstructive pulmonary disease with (acute) exacerbation; I12.0 Hypertensive chronic kidney disease with stage 5 chronic kidney disease or end stage renal disease; J81.1 Chronic pulmonary edema; I16.0 Hypertensive urgency; Z71.6 Tobacco abuse counseling; E87.5 Hyperkalemia; F17.210 Nicotine dependence, cigarettes, uncomplicated; Z99.2 Dependence on renal dialysis; I25.2 Old myocardial infarction; E87.70 Fluid overload, unspecified; R00.0 Tachycardia, unspecified; D63.1 Anemia in chronic kidney disease; F12.90 Cannabis use, unspecified, uncomplicated; F41.9 Anxiety disorder, unspecified; Z82.49 Family history of ischemic heart disease and other diseases of the circulatory system
CPT/HCPCS: 36415; 71045; 80048; 80053; 80074; 82550; 83735; 83880; 84484; 85025; 85610; 85730; 87116; 93005; 93010; 94644; 94760; 96374; 96375; 99406; G0378; J0885; J1940; J2920; J2930; J7030

== ENCOUNTER 2019-12-11 08:07 | Outpatient (CLI) | payer MEDICARE ==
--- NOTE | 2019-12-11 08:57 | XRay Report ---
XR spine lumbosacral 4+V INDICATION / CLINICAL INFORMATION: Low back. COMPARISON: None available. FINDINGS: BONES/JOINT(S): No acute fracture or subluxation. No significant degenerative changes. SOFT TISSUES: No significant abnormality. ADDITIONAL FINDINGS: There is moderate constipation in the colon. Signer Name: Hoang Herbert MD Signed: 12/11/2019 8:53 AM Workstation Name: [id number]
== END 2019-12-11 08:08 | disposition home or self-care (01) ==
LOC: XRAY 08:07
PROVIDERS: ATTEND Internal Medicine Nephrology
DX: M54.5 Low back pain (principal)
CPT/HCPCS: 72110

== ENCOUNTER 2020-06-02 02:28 | Inpatient (IN) | payer MEDICARE ==
[~2020-06-02 02:28] MED LIST: ETOMIDATE 20 MG/10 ML INJ IV ONE; SUCCINYLCHOLINE CHLORIDE 200 MG/10 ML INJ MDV ONE
[2020-06-02] MEDS ORDERED: SUCCINYLCHOLINE CHLORIDE 200 MG/10 ML INJ MDV IV ONE (02:48)
[2020-06-02] MEDS ORDERED: ETOMIDATE 20 MG/10 ML INJ IV ONE (02:48)
--- NOTE | 2020-06-02 02:57 | Emergency Department Report ---
ED Shortness of Breath HPI - General Chief Complaint: Dyspnea/Respdistress Stated Complaint: DIFFICULTY IN BREATHING Time Seen by Provider: 06/02/20 02:38 Source: EMS Mode of arrival: Stretcher Limitations: No Limitations - History of Present Illness Initial Comments: 39-year-old female with history of end-stage renal disease presents to ED in respiratory distress. Family reports to EMS that patient was recently discharged from hospital for similar occurrence a few days ago. Family stated this happens when she does not have enough fluid taken off of her during dialysis. Patient was last dialyzed on yesterday. Currently in ED, patient is on CPAP. Patient in tripod position, not answering questions. EMS reports initial O2 sats of 90% on room air. Patient was tachycardic in route with a rate in the 150s, EMS unable to get a blood pressure. MD Complaint: shortness of breath -: hour(s) (2) Severity: severe Consistency: constant Improves With: nothing Worsens With: nothing Known History Of: other (ESRD) Treatments Prior to Arrival: NIPPV - Related Data Home Medications Medication Instructions Recorded Confirmed Last Taken ALPRAZolam 0.5 mg PO 3XW 10/31/19 12/03/19 10/27/19 10:00 Citalopram 20 mg PO DAILY 10/31/19 12/03/19 10/27/19 Lanthanum Carbonate 1,000 mg PO TID 10/31/19 12/03/19 10/27/19 17:00 Varenicline(Nf) [Chantix (Nf)] 0.5 mg PO DAILY 10/31/19 12/03/19 10/27/19 10:00 Isosorbide Mononitrate 30 mg PO QAM 12/03/19 12/03/19 Unknown Metoprolol [Lopressor TAB] 50 mg PO DAILY 12/03/19 12/03/19 Unknown Omeprazole 20 mg PO DAILY 12/03/19 12/03/19 Unknown lamoTRIgine [LaMICtal] 25 mg PO QDAY 12/03/19 12/03/19 Unknown megestroL [Megestrol] 20 mg PO QID 12/03/19 12/03/19 Unknown Previous Rx's Medication Instructions Recorded Last Taken Type traMADoL [Ultram 50 MG tab] 50 mg PO Q6HR PRN #10 tablet 11/01/19 Unknown Rx Albuterol Sulfate [Proventil Hfa] 6.7 gm IH Q6H #1 hfa.aer.ad 12/05/19 Unknown Rx Prednisone [predniSONE 10 mg 10 mg PO .TAPER #1 tab.ds.pk 12/05/19 Unknown Rx (6-Day Pack, 21 Tabs)] Allergies Allergy/AdvReac Type Severity Reaction Status Date / Time No Known Allergies Allergy Verified 10/29/19 03:28 ED Review of Systems ROS: Stated complaint: DIFFICULTY IN BREATHING Other details as noted in HPI Comment: Unobtainable due to pts medical conditions Respiratory: shortness of breath ED Past Medical Hx - Past Medical History Previous Medical History?: Yes Hx Hypertension: Yes Hx Heart Attack/AMI: Yes Hx Congestive Heart Failure: No Hx Diabetes: No Hx Renal Disease: Yes (ESRD on dyalisis) Hx Asthma: No Hx COPD: Yes - Surgical History Past Surgical History?: Yes Additional Surgical History: fistula left upper arm - Social History Smoking Status: Unknown if ever smoked - Medications Home Medications: Home Medications Medication Instructions Recorded Confirmed Last Taken Type ALPRAZolam 0.5 mg PO 3XW 10/31/19 12/03/19 10/27/19 10:00 History Citalopram 20 mg PO DAILY 10/31/19 12/03/19 10/27/19 History Lanthanum Carbonate 1,000 mg PO TID 10/31/19 12/03/19 10/27/19 17:00 History Varenicline(Nf) [Chantix (Nf)] 0.5 mg PO DAILY 10/31/19 12/03/19 10/27/19 10:00 History traMADoL [Ultram 50 MG tab] 50 mg PO Q6HR PRN #10 tablet 11/01/19 12/03/19 Unknown Rx Isosorbide Mononitrate 30 mg PO QAM 12/03/19 12/03/19 Unknown History Metoprolol [Lopressor TAB] 50 mg PO DAILY 12/03/19 12/03/19 Unknown History Omeprazole 20 mg PO DAILY 12/03/19 12/03/19 Unknown History lamoTRIgine [LaMICtal] 25 mg PO QDAY 12/03/19 12/03/19 Unknown History megestroL [Megestrol] 20 mg PO QID 12/03/19 12/03/19 Unknown History Albuterol Sulfate [Proventil Hfa] 6.7 gm IH Q6H #1 hfa.aer.ad 12/05/19 Unknown Rx Prednisone [predniSONE 10 mg 10 mg PO .TAPER #1 tab.ds.pk 12/05/19 Unknown Rx (6-Day Pack, 21 Tabs)] ED Physical Exam - General Limitations: No Limitations General appearance: lethargic - Head Head exam: Present: atraumatic, normocephalic - Eye Eye exam: Present: normal appearance, EOMI - ENT ENT exam: Present: mucous membranes moist - Neck Neck exam: Present: normal inspection - Respiratory Respiratory exam: Present: rales - Cardiovascular Cardiovascular Exam: Present: normal rhythm, tachycardia - GI/Abdominal GI/Abdominal exam: Present: soft. Absent: distended, tenderness - Extremities Exam Extremities exam: Present: normal inspection - Neurological Exam Neurological exam: Present: altered, other (Nonverbal, not really following commands, patient nods her head yes and no to some questions) - Psychiatric Psychiatric exam: Present: flat affect - Skin Skin exam: Present: warm, dry, intact, normal color ED Course Vital Signs 06/02/20 06/02/20 06/02/20 02:39 02:43 02:51 Temperature Pulse Rate 149 H 149 H Respiratory 39 H 39 H Rate Blood Pressure 178/120 178/120 Blood Pressure [Right] O2 Sat by Pulse 100 100 Oximetry 06/02/20 06/02/20 06/02/20 03:00 04:00 05:00 Temperature 98.7 F Pulse Rate 101 H 105 H 105 H Respiratory 20 23 Rate Blood Pressure 104/82 Blood Pressure 157/115 141/103 [Right] O2 Sat by Pulse 100 98 100 Oximetry - Reevaluation(s) Reevaluation #1: 06/02/20 02:45 Labetalol 10 mg given. Heart rate improved from 150s to 110s. Initially on the monitor appeared to be SVT versus extreme sinus tachycardia. Following labetalol, rhythm appears to be a sinus tachycardia. Decision also made to intubate patient due to her respiratory status. Patient not tolerating BiPAP. - Consultations Consultation #1: 06/02/20 04:[address] Cosby, director counseling bureau, regarding patient. States will dialyze in the morning. Potassium is only 5.5, he recommends only insulin and D50 at this time. - Intubation Time Out Performed: Yes Sedative: Etomidate Mg Given: 20 Paralytic: Succinylcholine Mg Given: 150 Laryngoscope: fiberoptic video scope ET Tube Size: 7.5 Tube Secured Depth (cm): 22 Tube Secured Location: teeth Tube Placement Confirmation: visualized tube passing t, equal breath sounds bilat, no breath sounds over epi, confirmation by capnometr Patient Tolerated Procedure: well Intubation Complications: none ED Medical Decision Making - Lab Data Result diagrams: 06/02/20 03:05 06/02/20 03:05 - EKG Data -: EKG Interpreted by Me EKG shows normal: sinus rhythm, axis, intervals, QRS complexes Rate: tachycardia (rate 116) - EKG Data Interpretation: nonspecific ST-T wave dominga - Radiology Data Radiology results: report reviewed, image reviewed - Medical Decision Making 39-year-old female in acute respiratory distress. Patient arrived in ED hypertensive with blood pressure 170s over 110s and heart rate in the 150s. On the monitor he was unclear if this was sinus tachycardia versus SVT. Patient was given labetalol 10 mg IV which slowed her heart rate to the 110s and improved blood pressure, rhythm determined to be sinus tachycardia. Decision was made to intubate the patient due to her decreased mental status and tachypnea. Chest x-ray post intubation shows diffuse interstitial infiltrates consistent with pulmonary edema. Potassium is 5.5. Patient has an elevated WBC of 18, so cultures and antibiotics given to cover for possible infection. Lactic acid elevated, however, IV fluids held at this time as patient is already fluid overloaded as evidenced by CXR and elevated BNP. I spoke with the director counseling bureau, who recommends giving insulin and D50 for patient's mild hyperkalemia. Patient will be admitted to the hospitalist, Dr Zapata, and dialyzed in the morning. - Differential Diagnosis Pulmonary edema, pneumonia, hyperkalemia Critical Care Time: Yes Critical care time in (mins) excluding proc time.: 35 Critical care attestation.: If time is entered above; I have spent that time in minutes in the direct care of this critically ill patient, excluding procedure time. Critical Care Time: 35 min ED Disposition Clinical Impression: Acute respiratory failure with hypoxia, Pulmonary edema, ESRD needing dialysis, Hypertensive emergency, Hyperkalemia, SIRS (systemic inflammatory response syndrome) Disposition: OP ADMIT IP TO THIS HOSP Is pt being admited?: Yes Condition: Stable Time of Disposition: 04:31
--- NOTE | 2020-06-02 03:39 | XRay Report ---
CHEST 1 VIEW INDICATION: sob, post-intubation COMPARISON: 12/03/2019 FINDINGS: SUPPORT DEVICES: Endotracheal tube has tip in good position. Central venous lines tip in superior garret a cava. HEART / MEDIASTINUM: No significant abnormality. LUNGS / PLEURA: Diffuse pulmonary process is present predominantly interstitial. No pneumothorax. ADDITIONAL FINDINGS: IMPRESSION: 1. Diffuse interstitial pulmonary process, pulmonary edema is a concern Signer Name: Can Booth MD Signed: 06/02/2020 3:35 AM Workstation Name: [id number]
[2020-06-02 03:41] LABS: Hematocrit 37.6 % (30.3-42.9); Hemoglobin 11.5 gm/dl (10.1-14.3); Mean Corpuscular HGB Conc 31 % (30-34); Mean Corpuscular Volume 98 fl (79-97); Platelet Count 254 K/mm3 (140-440); Red Blood Count 3.85 M/mm3 (3.65-5.03); Red Cell Distribution Width 19.2 % (13.2-15.2)
[2020-06-02] MEDS ORDERED: VANCOMYCIN 1,000 MG in SODIUM CHLORIDE 0.9% 500 ML 500 ML IV ONE (03:48)
[2020-06-02] MEDS ORDERED: CEFEPIME/NS 2 GM/100 ML 2 GM/100 ML BAG IV ONE (03:49)
[2020-06-02 03:53] LABS: INR 1.02 (0.87-1.13)
[2020-06-02 03:54] LABS: Partial Thromboplastin Time 28.9 Sec. (24.2-36.6)
[2020-06-02 04:00] LABS: Alanine Aminotransferase 16 units/L (7-56); Albumin 3.8 g/dL (3.9-5); Blood Urea Nitrogen 53 mg/dL (7-17); Hemolysis Index 24
[2020-06-02 04:08] LABS: BUN/Creatinine Ratio 5; Bilirubin,Direct < 0.2 mg/dL (0-0.2)
[2020-06-02] MEDS ORDERED: VANCOMYCIN/NS 1 GM/250 ML 1 GM/250 ML BAG IV ONE (04:20)
[2020-06-02] MEDS ORDERED: INSULIN REGULAR, HUMAN 100 UNIT/ML 3ML VIAL IV ONE (04:22)
[2020-06-02] MEDS ORDERED: DEXTROSE 50% IN WATER (25GM) 50 ML SYRINGE IV ONE ×2 (04:23→05:12)
[2020-06-02 05:12] LABS: Hepatitis B Surface Antigen Non-Reactive (Negative); Hepatitis C Virus Antibody Non-Reactive (NonReactive)
[2020-06-02 05:12] LABS: Basophils % (Manual) 0 % (0.0-1.8); Burr Cells Few; Total Cells Counted 100
[2020-06-02 05:13] LABS: Platelet Estimate Consistent w Auto
[2020-06-02] MEDS ORDERED: INSULIN REGULAR, HUMAN 100 UNIT/ML 3ML VIAL ONE (05:13)
[2020-06-02] MEDS ORDERED: INSULIN REGULAR, HUMAN 100 UNITS/1 ML ONE (05:13)
[2020-06-02] MEDS ORDERED: MORPHINE 2 MG/1 ML INJ IV PRN (05:42)
--- NOTE | 2020-06-02 05:42 | History and Physical Report ---
History of Present Illness Date of examination: 06/02/20 Date of admission: 06/02/20 04:33 Chief complaint: Difficulty breathing History of present illness: Patient is a 39-year-old female with known history of end-stage renal disease on dialysis was brought into the emergency room today in respiratory distress. She was just recently discharged from the hospital a few days ago with similar complaints. Most of the history was gotten from the emergency room physician as patient is already intubated. Family indicates that patient had dialysis yesterday but states enough fluid may not have been taken off during dialysis. O2 saturation in route to the hospital according to EMS was 90% on room air. Patient was said to be tachycardic with a heart rate of about 150 and blood pressure was not obtainable. Patient subsequently intubated in the emergency room. Work-up in the emergency room reveals leukocytosis of about 18. Hyperkalemia of about 5.5 and chest x-ray revealed pulmonary edema. Patient has been intubated and sedated and also placed on empiric IV antibiotics. Past History Past Medical History: CAD, ESRD (On Dialysis), hypertension Past Surgical History: Other (Left upper extremity A-V fistula Placement.) Social history: other (Unknown) Family history: other (Unknown) Medications and Allergies Allergies Allergy/AdvReac Type Severity Reaction Status Date / Time No Known Allergies Allergy Verified 10/29/19 03:28 Home Medications Medication Instructions Recorded Confirmed Last Taken Type ALPRAZolam 0.5 mg PO 3XW 10/31/19 12/03/19 10/27/19 10:00 History Citalopram 20 mg PO DAILY 10/31/19 12/03/19 10/27/19 History Lanthanum Carbonate 1,000 mg PO TID 10/31/19 12/03/19 10/27/19 17:00 History Varenicline(Nf) [Chantix (Nf)] 0.5 mg PO DAILY 10/31/19 12/03/19 10/27/19 10:00 History traMADoL [Ultram 50 MG tab] 50 mg PO Q6HR PRN #10 tablet 11/01/19 12/03/19 Unknown Rx Isosorbide Mononitrate 30 mg PO QAM 12/03/19 12/03/19 Unknown History Metoprolol [Lopressor TAB] 50 mg PO DAILY 12/03/19 12/03/19 Unknown History Omeprazole 20 mg PO DAILY 12/03/19 12/03/19 Unknown History lamoTRIgine [LaMICtal] 25 mg PO QDAY 12/03/19 12/03/19 Unknown History megestroL [Megestrol] 20 mg PO QID 12/03/19 12/03/19 Unknown History Albuterol Sulfate [Proventil Hfa] 6.7 gm IH Q6H #1 hfa.aer.ad 12/05/19 Unknown Rx Prednisone [predniSONE 10 mg 10 mg PO .TAPER #1 tab.ds.pk 12/05/19 Unknown Rx (6-Day Pack, 21 Tabs)] Active Meds: Active Medications Propofol (Diprivan 10 Mg/Ml) 1,000 mg in 100 mls @ 1.973 mls/hr IV TITR RYLIE; Protocol Last Admin: 06/02/20 03:30 Dose: 10 mcg/kg/min, 3.946 mls/hr Documented by: Review of Systems ROS unobtainable: due to endotracheal tube, due to mental status Exam - Constitutional Vitals: Temp Pulse Resp BP Pulse Ox 98.7 F 105 H 23 141/103 100 06/02/20 03:00 06/02/20 05:00 06/02/20 05:00 06/02/20 05:00 06/02/20 05:00 General appearance: Present: mild distress, well-nourished, other (Intubated) - EENT Eyes: Present: PERRL, EOM intact. Absent: scleral icterus ENT: hearing intact, clear oral mucosa, dentition normal - Neck Neck: Present: supple, normal ROM - Respiratory Respiratory effort: normal Respiratory: bilateral: rales - Cardiovascular Rhythm: regular Heart Sounds: Present: S1 & S2. Absent: gallop, systolic murmur, diastolic murmur, rub - Extremities Extremities: no ischemia, pulses intact, pulses symmetrical, No edema, Full ROM Peripheral Pulses: within normal limits - Abdominal General gastrointestinal: Present: soft, non-tender, non-distended, normal bowel sounds. Absent: mass - Integumentary Integumentary: Present: clear, warm, dry - Musculoskeletal Musculoskeletal: strength equal bilaterally - Psychiatric Psychiatric: cooperative, other (Intubated and Sedated.) - Neurologic Neurologic: CNII-XII intact, no focal deficits, moves all extremities HEART Score - HEART Score Troponin: Troponin T < 0.010 ng/mL (0.00-0.029) 06/02/20 03:05 Results - Labs CBC & Chem 7: 06/02/20 03:05 06/02/20 03:05 Labs: Abnormal lab results 06/02/20 06/02/20 06/02/20 Range/Units 03:05 03:05 04:08 WBC 18.0 H (4.5-11.0) K/mm3 MCV 98 H (79-97) fl RDW 19.2 H (13.2-15.2) % Seg Neutrophils # Man 10.4 H (1.8-7.7) K/mm3 Lymphocytes # (Manual) 6.3 H (1.2-5.4) K/mm3 Eosinophils # (Manual) 0.5 H (0.0-0.4) K/mm3 Sodium 133 L (137-145) mmol/L Potassium 5.5 H (3.6-5.0) mmol/L Chloride 86.2 L (98-107) mmol/L Carbon Dioxide 14 L (22-30) mmol/L BUN 53 H (7-17) mg/dL Creatinine 11.7 H (0.6-1.2) mg/dL Glucose 291 H (65-100) mg/dL Lactic Acid 9.50 H* (0.7-2.0) mmol/L NT-Pro-B Natriuret Pep 33462 H (0-450) pg/mL Albumin 3.8 L (3.9-5) g/dL Assessment and Plan - Patient Problems (1) Acute respiratory failure with hypoxia Current Visit: Yes Status: Acute Plan to address problem: Patient currently intubated and sedated.. Will place consult to shredder tender peat for evaluation and recommendation. (2) ESRD needing dialysis Current Visit: Yes Status: Acute Plan to address problem: Consult placed to the manager action for possible dialysis. (3) Hyperkalemia Current Visit: Yes Status: Acute (4) Leukocytosis Current Visit: Yes Status: Acute Plan to address problem: Etiology is unclear. Patient however has been placed on empiric IV antibiotics. Will monitor CBC. (5) DVT prophylaxis Current Visit: Yes Status: Acute Plan to address problem: Patient placed on subcutaneous heparin. (6) Full code status Current Visit: Yes Status: Acute
[2020-06-02] MEDS ORDERED: HEPARIN 5,000 UNIT/1 ML VIAL ONE (06:14)
[2020-06-02] MEDS: HEPARIN 5,000 UNIT/1 ML VIAL SUB-Q SCH ×3 (06:18→22:20)
[2020-06-02 06:22] LABS: ABG Base Excess -6.2 mmol/L (-2.0-3.0); ABG HCO3 18.6 mmol/L (20.0-26.0); ABG Methemoglobin 0.4 % (0.0-1.5); ABG Oxygen Saturation 98.3 % (95.0-99.0); ABG PCO2 34.3 mm Hg; ABG PH 7.352 pH Units (7.350-7.450); ABG PO2 123.5 mm Hg (80.0-90.0)
[2020-06-02] MEDS ORDERED: SODIUM CHLORIDE 0.9% 100 ML IV PRN (07:16)
[2020-06-02] MEDS: EPOETIN ALFA 10,000 UNIT/1 ML INJ IV PRN (09:24)
--- NOTE | 2020-06-02 10:39 | Consultation ---
History of Present Illness Consult date: 06/02/20 Requesting physician: TITUS NINA History of present illness: Patient is a 39-year-old female with known history of end-stage renal disease on dialysis was brought into the emergency room today in respiratory distress. She was just recently discharged from the hospital a few days ago with similar complaints. Most of the history was gotten from the emergency room physician as patient is already intubated. Family indicates that patient had dialysis yesterday but states enough fluid may not have been taken off during dialysis. O2 saturation in route to the hospital according to EMS was 90% on room air. Patient was said to be tachycardic with a heart rate of about 150 and blood pressure was not obtainable. Patient subsequently intubated in the emergency room. Work-up in the emergency room reveals leukocytosis of about 18. Hyperkalemia of about 5.5 and chest x-ray revealed pulmonary edema ( images personally reviewed). Patient was intubated and sedated and also placed on empiric IV antibiotics. I have been consulted for critical care management. Patient was seen and examined. Vitals, labs,medications, chart and imaging reviewed. She is orally intubated, sedated on Propofol and is currently getting HD She is currently on PEEP +8/FIO2 40% Past History Past Medical History: CAD, ESRD (On Dialysis), hypertension Past Surgical History: Other (Left upper extremity A-V fistula Placement.) Social history: other (Unknown) Family history: other (Unknown) Medications and Allergies Allergies Allergy/AdvReac Type Severity Reaction Status Date / Time No Known Allergies Allergy Verified 10/29/19 03:28 Home Medications Medication Instructions Recorded Confirmed Last Taken Type ALPRAZolam 0.5 mg PO 3XW 10/31/19 06/02/20 05/30/20 10:30 History Citalopram 20 mg PO DAILY 10/31/19 06/02/20 10/27/19 History Lanthanum Carbonate 1,000 mg PO TID 10/31/19 06/02/20 06/01/20 22:00 History Varenicline(Nf) [Chantix (Nf)] 0.5 mg PO DAILY 10/31/19 06/02/20 06/01/20 History traMADoL [Ultram 50 MG tab] 50 mg PO Q6HR PRN #10 tablet 02/03/1506/02/20 05/30/20 Rx 50 mg Isosorbide Mononitrate 30 mg PO QAM 12/03/19 06/02/20 05/31/20 10:00 History Metoprolol [Lopressor TAB] 50 mg PO DAILY 12/03/19 06/02/20 06/01/20 22:00 History Omeprazole 20 mg PO DAILY 12/03/19 06/02/20 06/01/20 22:00 History Albuterol Sulfate [Proventil Hfa] 6.7 gm IH Q6H #1 hfa.aer.ad 12/05/19 06/02/20 06/01/20 20:[address] [DepMargaret MOFFETT] 500 mg PO BID 06/02/20 06/02/20 06/01/20 21:00 History HYDROcodone/ACETAMINOPHEN 1 each PO Q6HR 06/02/20 06/02/20 05/30/20 21:00 History [Hydrocodone-Acetamin 5-300 mg] Hydroxyzine HCl [hydrOXYzine] 50 mg PO TID 06/02/20 06/02/20 06/01/20 21:00 History diphenhydrAMINE [Benadryl CAP] 25 mg PO BID 06/02/20 06/02/20 06/01/20 22:00 History Active Meds: Active Medications Epoetin Perfecto (Procrit) 10,000 unit IV LEWIS PRN PRN Reason: hemodialysis Last Admin: 06/02/20 09:24 Dose: 10,000 unit Documented by: Famotidine (Pepcid) 20 mg PO DAILY [facility] Heparin Sodium (Porcine) (Heparin) 5,000 unit SUB-Q Q8HR RYLIE Last Admin: 06/02/20 06:18 Dose: 5,000 unit Documented by: Propofol (Diprivan 10 Mg/Ml) 1,000 mg in 100 mls @ 1.973 mls/hr IV TITR RYLIE; Protocol Last Titration: 06/02/20 10:10 Dose: 50 mcg/kg/min, 19.731 mls/hr Documented by: Cefepime HCl (Cefepime/Ns 1 Gm/100 Ml) 1 gm in 100 mls @ 200 mls/hr IV Q24HR RYLIE Sodium Chloride (Nacl 0.9%) 100 mls @ 999 mls/hr IV LEWIS PRN PRN Reason: Hypotension Morphine Sulfate (Morphine) 2 mg IV Q4H PRN PRN Reason: Pain, Moderate (4-6) Sodium Chloride (Sodium Chloride Flush Syringe 10 Ml) 10 ml IV BID RYLIE Sodium Chloride (Sodium Chloride Flush Syringe 10 Ml) 10 ml IV PRN PRN PRN Reason: LINE FLUSH Review of Systems ROS unobtainable: due to endotracheal tube, due to mental status Physical Examination Vital signs: Vital Signs Pulse Resp BP Pulse Ox 149 H 39 H 178/120 100 06/02/20 02:39 06/02/20 02:39 06/02/20 02:39 06/02/20 02:39 General appearance: no acute distress, other (orally intubated, ETT at 22cm, no dys-synchrony) Eyes: non-icteric ENT: oropharynx moist Neck: supple, no lymphadenopathy, no JVD Effort: normal Ascultation: Bilateral: diminished breath sounds, rales Cardiovascular: regular rate and rhythm, other (S1,S2, ) Gastrointestinal: normoactive bowel sounds, hypoactive bowel sounds, non-tender Integumentary: normal unable to assess other (Unable to assess) Results - Laboratory Findings CBC and BMP: 06/03/20 05:01 06/03/20 05:01 ABG ABG pH 7.352 pH Units (7.350-7.450) 06/02/20 05:00 ABG pCO2 34.3 mm Hg 06/02/20 05:00 ABG pO2 123.5 mm Hg (80.0-90.0) H 06/02/20 05:00 ABG O2 Saturation 98.3 % (95.0-99.0) 06/02/20 05:00 PT/INR, D-dimer PT 13.6 Sec. (12.2-14.9) 06/02/20 03:05 INR 1.02 (0.87-1.13) 06/02/20 03:05 Abnormal lab findings: Abnormal Labs 06/02/20 06/02/20 06/02/20 03:05 03:05 04:08 WBC 18.0 H MCV 98 H RDW 19.2 H Seg Neutrophils # Man 10.4 H Lymphocytes # (Manual) 6.3 H Eosinophils # (Manual) 0.5 H ABG pO2 ABG HCO3 ABG Base Excess ABG Hemoglobin Sodium 133 L Potassium 5.5 H Chloride 86.2 L Carbon Dioxide 14 L BUN 53 H Creatinine 11.7 H Glucose 291 H Lactic Acid 9.50 H* NT-Pro-B Natriuret Pep 65461 H Albumin 3.8 L 06/02/20 06/02/20 06/02/20 05:00 05:37 06:45 WBC MCV RDW Seg Neutrophils # Man Lymphocytes # (Manual) Eosinophils # (Manual) ABG pO2 123.5 H ABG HCO3 18.6 L ABG Base Excess -6.2 L ABG Hemoglobin 11.6 L Sodium Potassium Chloride Carbon Dioxide BUN Creatinine Glucose Lactic Acid 5.30 H* 5.30 H* NT-Pro-B Natriuret Pep Albumin - Diagnostic Findings Chest x-ray: image reviewed (Bilateral alveolar infiltrates) Additional studies: BNP 70,000 Lactic acid 5.3 Assessment and Plan Acute hypoxemic respiratory failure on MVS Acute pulmonary edema ESRD needing HD Elevated BNP Leukocytosis -Continue with supplemental oxygen therapy to keep O2 sats >90% -VAP bundle addressed -Decrease PEEP to 6 -SAT and SBT post HD, if tolerated plan is to liberate from MVS -Aspiration precautions, HOB >40 -MObility, off loading -Maintenance of sleep-wake cycle, avoid benzodiazepines to reduce risk of delirium -Recommend that we stop antibiotics, this appears to be pulmonary edema. The leukocytosis is probably associated with the acute stress reaction, and lactic acidosis from hypoperfusion -Get transthoracic echocardiogram to evaluate LVEF and to assess pulmonary venous hypertension -ABG, CXR in am -Supportive HD -VTE prophylaxis, Stress ulcer prophylaxis -Accuchecks with glycemic control, avoid hypoglycemia -Avoid nephrotoxins, renally dose all medications -Chronic home medications as clinically indicated -If she not liberated from MVS today, place small bowel feeding tube for medications and nutritional support Thank you for this consult. Will follow Discussed care plan with primary service and the rean service Discussed with the ICU team-RTRN, Life threatening condition- Acute hypoxemic respiratory failure on MVS, acute pulmonary edema, Mortality/Morbidity- High Complexity of medical decision making- High CONDITION: CRITICAL PROGNOSIS: GUARDED CODE STATUS: FULL CODE The high probability of a clinically significant, sudden or life-threatening deterioration of the [respiratory, cardiovascular & renal ] system(s) required my full and direct attention, intervention and personal management. The aggregate critical care time was [36] minutes without overlap. Time includes spent on; [x] Data Review and interpretation [x] Patient assessment and monitoring of vital signs [x] Documentation [x] Medication orders and management
[2020-06-02] MEDS ORDERED: SIMPLE SYRUP 15 ML FEEDTUBE PRN ×2 (11:28)
[2020-06-02] MEDS ORDERED: SODIUM BICARBONATE 325 MG TAB FEEDTUBE PRN (11:28)
[2020-06-02] MEDS ORDERED: LIPASE 10,500/PROTEASE 25,000/AMYLASE 43,750 (UNITS) DR CAP FEEDTUBE PRN (11:28)
--- NOTE | 2020-06-02 12:50 | Event Note ---
Date: 06/02/20 Patient seen and examined Patient is a 39-year-old female with known history of end-stage renal disease on dialysis was brought into the emergency room in respiratory distress. O2 saturation in route to the hospital according to EMS was 90% on room air. Patient was said to be tachycardic with a heart rate of about 150 and blood pressure was not obtainable. Patient subsequently intubated in the emergency room. Work-up in the emergency room reveals leukocytosis of about 18. Hyperkalemia of about 5.5 and chest x-ray revealed pulmonary edema. Patient also placed on empiric IV antibiotics. Nephrology consulted, will follow recommendation We will continue current management and plan if tolerates SBT then plan to extubate soon Repeat BMP in the morning
[2020-06-02] MEDS ORDERED: CEFEPIME/NS 2 GM/100 ML 2 GM/100 ML BAG IV SCH (14:00)
--- NOTE | 2020-06-02 14:08 | Consultation ---
History of Present Illness - Reason for Consult Consult date: 06/02/20 end stage renal disease, hyperkalemia - History of Present Illness 39-year-old lady who is known to me with a history of end-stage renal disease presumably secondary to hypertensive nephrosclerosis. She dialyzes on a Tuesday, Tuesday and Tuesday schedule at [facility]. Patient went to her usual dialysis performing but believes she did not get enough fluid removed. Developed progressive worsening shortness of breath and on presenting to the emergency room via EMS she was in tripod position unable to answer questions. Initial O2 sat was 90% on oxygen supplementation. She was tachycardic with heart rate up to 150s. With impending respiratory failure, patient was intubated in the emergency room. Labs showed BUN of 58 creatinine 11.7 potassium 5.5 bicarbonate low at 14 and sodium low at 133 mmol/L. I am co nsulted to assist with providing dialysis and managing fluid and electrolyte abnormalities. Patient is not able to give a history. She is intubated on the ventilator. Past History Past Medical History: CAD, ESRD (On Dialysis), hypertension Past Surgical History: Other (Left upper extremity A-V fistula Placement.) Social history: other (Unknown). denies: alcohol abuse, prescription drug abuse, IV drug use, full code Family history: other (Unknown) Medications and Allergies Allergies Allergy/AdvReac Type Severity Reaction Status Date / Time No Known Allergies Allergy Verified 10/29/19 03:28 Home Medications Medication Instructions Recorded Confirmed Last Taken Type ALPRAZolam 0.5 mg PO 3XW 10/31/19 12/03/19 10/27/19 10:00 History Citalopram 20 mg PO DAILY 10/31/19 12/03/19 10/27/19 History Lanthanum Carbonate 1,000 mg PO TID 10/31/19 12/03/19 10/27/19 17:00 History Varenicline(Nf) [Chantix (Nf)] 0.5 mg PO DAILY 10/31/19 12/03/19 10/27/19 10:00 History traMADoL [Ultram 50 MG tab] 50 mg PO Q6HR PRN #10 tablet 11/01/19 12/03/19 Unknown Rx Isosorbide Mononitrate 30 mg PO QAM 12/03/19 12/03/19 Unknown History Metoprolol [Lopressor TAB] 50 mg PO DAILY 12/03/19 12/03/19 Unknown History Omeprazole 20 mg PO DAILY 12/03/19 12/03/19 Unknown History lamoTRIgine [LaMICtal] 25 mg PO QDAY 12/03/19 12/03/19 Unknown History megestroL [Megestrol] 20 mg PO QID 12/03/19 12/03/19 Unknown History Albuterol Sulfate [Proventil Hfa] 6.7 gm IH Q6H #1 hfa.aer.ad 12/05/19 Unknown Rx Prednisone [predniSONE 10 mg 10 mg PO .TAPER #1 tab.ds.pk 12/05/19 Unknown Rx (6-Day Pack, 21 Tabs)] Active Meds: Active Medications Lipase/Protease/Amylase (Pancreaze Dr 10,500 Unit) 1 each FEEDTUBE PRN PRN PRN Reason: For Clogged Feeding Tube Epoetin Perfecto (Procrit) 10,000 unit IV LEWIS PRN PRN Reason: hemodialysis Last Admin: 06/02/20 09:24 Dose: 10,000 unit Documented by: Famotidine (Pepcid) 20 mg PO DAILY RYLIE Heparin Sodium (Porcine) (Heparin) 5,000 unit SUB-Q Q8HR RYLIE Last Admin: 06/02/20 06:18 Dose: 5,000 unit Documented by: Propofol (Diprivan 10 Mg/Ml) 1,000 mg in 100 mls @ 1.973 mls/hr IV TITR RYLIE; Protocol Last Titration: 06/02/20 10:10 Dose: 50 mcg/kg/min, 19.731 mls/hr Documented by: Cefepime HCl (Cefepime/Ns 1 Gm/100 Ml) 1 gm in 100 mls @ 200 mls/hr IV Q24HR RYLIE Sodium Chloride (Nacl 0.9%) 100 mls @ 999 mls/hr IV LEWIS PRN PRN Reason: Hypotension Morphine Sulfate (Morphine) 2 mg IV Q4H PRN PRN Reason: Pain, Moderate (4-6) Simple Syrup (Simple Syrup) 15 ml FEEDTUBE PRN PRN PRN Reason: Hypoglycemia Simple Syrup (Simple Syrup) 30 ml FEEDTUBE PRN PRN PRN Reason: Hypoglycemia Sodium Bicarbonate (Sodium Bicarbonate) 325 mg FEEDTUBE PRN PRN PRN Reason: For Clogged Feeding Tube Sodium Chloride (Sodium Chloride Flush Syringe 10 Ml) 10 ml IV BID RYLIE Sodium Chloride (Sodium Chloride Flush Syringe 10 Ml) 10 ml IV PRN PRN PRN Reason: LINE FLUSH Review of Systems ROS unobtainable: due to endotracheal tube Exam - Vital Signs Vital signs: Vital Signs Pulse Resp BP Pulse Ox 149 H 39 H 178/120 100 06/02/20 02:39 06/02/20 02:39 06/02/20 02:39 06/02/20 02:39 - Physical Exam Narrative exam: Young -Iranian female lying in bed intubated on ventilator HEENT: NCAT, pink oral mucous membrane Neck: Supple, no venous distention CVS: S1S2 RRR with no murmur, rub or gallop Chest: Clear to auscultation Abdomen: Protuberant, soft, nontender, no organomegaly, bowel sounds are present Extremities: No edema Genitourinary deferred. Skin: Warm and dry Neuro: Awake, alert no focal deficits Results - Lab Results 06/02/20 03:05 06/02/20 03:05 Most recent lab results ABG pH 7.352 pH Units (7.350-7.450) 06/02/20 05:00 ABG pCO2 34.3 mm Hg 06/02/20 05:00 ABG pO2 123.5 mm Hg (80.0-90.0) H 06/02/20 05:00 ABG HCO3 18.6 mmol/L (20.0-26.0) L 06/02/20 05:00 ABG O2 Saturation 98.3 % (95.0-99.0) 06/02/20 05:00 Calcium 9.0 mg/dL (8.4-10.2) 06/02/20 03:05 Assessment and Plan - Patient Problems (1) Acute respiratory failure with hypoxia Current Visit: Yes Status: Acute Plan to address problem: Continue ventilator management by pulmonary. Discussed possible weaning if patient continues to do well and if the parameters are good with solution coordinator. (2) Hyperkalemia Current Visit: Yes Status: Resolved Plan to address problem: Start hemodialysis was done. Repeat potassium (3) Anemia in ESRD (end-stage renal disease) Current Visit: No Status: Chronic Plan to address problem: . Plan to give erythropoietin on dialysis and follow-up Hgb (4) Anxiety Current Visit: No Status: Chronic Plan to address problem: Continue anxiolytic (5) End stage renal disease on dialysis Current Visit: No Status: Chronic Plan to address problem: Hemodialysis Tuesday, Tuesday and Tuesday schedule (6) Hypertensive chronic kidney disease with stage 5 chronic kidney disease or end stage renal disease Current Visit: No Status: Chronic Plan to address problem: Follow-up blood pressure on current medications (7) Metabolic acidosis Current Visit: Yes Status: Acute Plan to address problem: Hemodialysis on a Tue/Tue/Tuesday schwdualba. DC bicarbonate and follow-up sodium bicarb
[2020-06-02] MEDS ORDERED: NON-FORMULARY EACH (Alprazolam 0.5 MG) PO PRN (17:05)
[2020-06-02] MEDS ORDERED: traMADol 50 MG TAB PO PRN (17:11)
[2020-06-02] MEDS: ALPRAZolam 0.5 MG TAB PO PRN (17:57)
[2020-06-02] MEDS: FAMOTIDINE 20 MG TAB PO SCH (17:58)
[2020-06-02] MEDS: CEFEPIME/NS 1 GM/100 ML 1 GM/100 ML BAG IV SCH (18:02)
[2020-06-02] MEDS ORDERED: LANTHANUM CARBONATE 1000 MG PO SCH (20:00)
[2020-06-02] MEDS: lamoTRIgine 25 MG TAB PO SCH (21:49)
[2020-06-02] MEDS ORDERED: diphenhydrAMINE 25 MG CAP PO PRN (22:00)
[2020-06-02] MEDS: LANTHANUM CARBONATE 500 MG TAB PO SCH (22:18)
[2020-06-02] MEDS: MEGESTROL 20 MG TAB PO SCH ×2 (22:19→22:20)
[2020-06-02] MEDS: HYDROcodone/ACETAMINOPHEN 5-325 MG TAB PO PRN (22:19)
[2020-06-03 05:31] LABS: Basophils # (Auto) 0.1 K/mm3 (0.0-0.1); Basophils % (Auto) 0.7 % (0.0-1.8); Eosinophils # (Auto) 0.4 K/mm3 (0.0-0.4); Hematocrit 30.3 % (30.3-42.9); Lymphocytes # (Auto) 1.5 K/mm3 (1.2-5.4); Lymphocytes % (Auto) 13.4 % (13.4-35.0); Mean Corpuscular HGB Conc 33 % (30-34); Mean Corpuscular Volume 91 fl (79-97); Monocytes % (Auto) 8.8 % (0.0-7.3); Platelet Count 140 K/mm3 (140-440); Red Blood Count 3.33 M/mm3 (3.65-5.03); Red Cell Distribution Width 18.6 % (13.2-15.2)
[2020-06-03 05:50] LABS: Calcium 8.5 mg/dL (8.4-10.2)
[2020-06-03 05:53] LABS: INR 1.2 (0.87-1.13)
[2020-06-03] MEDS: HEPARIN 5,000 UNIT/1 ML VIAL SUB-Q SCH ×3 (06:29→21:48)
[2020-06-03] MEDS: HYDROcodone/ACETAMINOPHEN 5-325 MG TAB PO PRN ×2 (08:14→23:12)
[2020-06-03] MEDS: LANTHANUM CARBONATE 500 MG TAB PO SCH ×3 (08:19→23:09)
[2020-06-03] MEDS: CITALOPRAM 20 MG TAB PO SCH (09:32)
[2020-06-03] MEDS: METOPROLOL TARTRATE 50 MG TAB PO SCH (09:32)
[2020-06-03] MEDS: CEFEPIME/NS 1 GM/100 ML 1 GM/100 ML BAG IV SCH (09:34)
[2020-06-03] MEDS: FAMOTIDINE 20 MG TAB PO SCH (09:34)
[2020-06-03] MEDS: lamoTRIgine 25 MG TAB PO SCH (09:35)
[2020-06-03] MEDS: MEGESTROL 20 MG TAB PO SCH ×4 (09:36→23:09)
[2020-06-03] MEDS ORDERED: CITALOPRAM 20 MG PO SCH (10:00)
[2020-06-03] MEDS ORDERED: NON-FORMULARY EACH (Isosorbide Mononitrate [Isosorbide Mononitrate] 30 MG) PO SCH (10:00)
--- NOTE | 2020-06-03 10:50 | Progress Note ---
Assessment and Plan Acute hypoxemic respiratory failure s/p MVS Acute pulmonary edema ESRD needing HD Elevated BNP Leukocytosis -Aspiration precautions, HOB >40 -Maintenance of sleep-wake cycle, avoid benzodiazepines to reduce risk of delirium -Get transthoracic echocardiogram to evaluate LVEF and to assess pulmonary venous hypertension -ABG, CXR prn -Supportive HD -VTE prophylaxis, -Accuchecks with glycemic control, avoid hypoglycemia -Avoid nephrotoxins, renally dose all medications -Chronic home medications as clinically indicated -OK to transfer out of the ICU Discussed with the ICU team-RT,RN, Subjective Date of service: 06/03/20 Interval history: Follow up for Acute hypoxemic respiratory failure on MVS;Acute pulmonary edema;ESRD needing HD;Elevated BNP;Leukocytosis Seen and examined. Vitals, labs, medications, chart reviewed. Respiratory and nursing staff consulted. No fevers, successfully extubated yesterday. Doing well. No nausea or vomiting Objective Vital Signs - 12hr 06/02/20 06/02/20 06/02/20 23:01 23:16 23:30 Temperature Pulse Rate 106 H 103 H 107 H Pulse Rate [ From Monitor] Respiratory 12 26 H 15 Rate Blood Pressure 140/87 140/87 O2 Sat by Pulse 99 98 99 Oximetry 06/02/20 06/03/20 06/03/20 23:46 00:00 00:16 Temperature 98.1 F Pulse Rate 103 H 102 H 99 H Pulse Rate [ 102 H From Monitor] Respiratory 17 24 20 Rate Blood Pressure 140/87 140/87 138/83 O2 Sat by Pulse 98 97 97 Oximetry 06/03/20 06/03/20 06/03/20 00:30 00:46 01:00 Temperature Pulse Rate 97 H 97 H 95 H Pulse Rate [ From Monitor] Respiratory 21 12 17 Rate Blood Pressure 138/83 138/83 141/88 O2 Sat by Pulse 93 97 97 Oximetry 06/03/20 06/03/20 06/03/20 01:16 02:00 03:00 Temperature Pulse Rate 95 H 92 H 92 H Pulse Rate [ From Monitor] Respiratory 19 16 22 Rate Blood Pressure 141/88 134/86 127/79 O2 Sat by Pulse 95 97 91 Oximetry 06/03/20 06/03/20 06/03/20 03:49 04:00 05:00 Temperature 97.9 F Pulse Rate 87 86 95 H Pulse Rate [ 86 From Monitor] Respiratory 17 18 Rate Blood Pressure 132/78 137/82 O2 Sat by Pulse 96 98 Oximetry 06/03/20 06/03/20 06/03/20 06:00 07:00 08:00 Temperature 98.6 F Pulse Rate 85 83 95 H Pulse Rate [ 90 From Monitor] Respiratory 17 16 16 Rate Blood Pressure 127/76 113/70 131/87 O2 Sat by Pulse 97 96 98 Oximetry 06/03/20 06/03/20 06/03/20 08:14 09:00 09:32 Temperature Pulse Rate 85 88 Pulse Rate [ From Monitor] Respiratory 19 14 Rate Blood Pressure 117/67 127/75 O2 Sat by Pulse 99 Oximetry 06/03/20 10:07 Temperature Pulse Rate Pulse Rate [ From Monitor] Respiratory Rate Blood Pressure O2 Sat by Pulse 97 Oximetry Constitutional: no acute distress, alert Eyes: non-icteric ENT: oropharynx moist Neck: supple, no lymphadenopathy, no JVD Effort: normal Ascultation: Bilateral: diminished breath sounds, rales Cardiovascular: regular rate and rhythm, other (S1,S2, ) Gastrointestinal: normoactive bowel sounds, hypoactive bowel sounds, non-tender Integumentary: normal Neurologic: normal mental status, non-focal exam, pupils equal and round, CN II- XII normal, motor strength normal and Psychiatric: mood appropriate, affect normal CBC and BMP: 06/03/20 05:01 06/03/20 05:01 ABG, PT/INR, D-dimer: ABG ABG pH 7.352 pH Units (7.350-7.450) 06/02/20 05:00 ABG pCO2 34.3 mm Hg 06/02/20 05:00 ABG pO2 123.5 mm Hg (80.0-90.0) H 06/02/20 05:00 ABG O2 Saturation 98.3 % (95.0-99.0) 06/02/20 05:00 PT/INR, D-dimer PT 15.5 Sec. (12.2-14.9) H 06/03/20 05:01 INR 1.20 (0.87-1.13) H 06/03/20 05:01 Abnormal lab findings: Abnormal Labs 06/02/20 06/02/20 06/02/20 03:05 03:05 04:08 WBC 18.0 H RBC Hgb MCV 98 H RDW 19.2 H Harper % (Auto) Harper # Seg Neutrophils % Seg Neutrophils # Seg Neutrophils # Man 10.4 H Lymphocytes # (Manual) 6.3 H Eosinophils # (Manual) 0.5 H PT INR ABG pO2 ABG HCO3 ABG Base Excess ABG Hemoglobin Sodium 133 L Potassium 5.5 H Chloride 86.2 L Carbon Dioxide 14 L BUN 53 H Creatinine 11.7 H Glucose 291 H Lactic Acid 9.50 H* NT-Pro-B Natriuret Pep 97798 H Albumin 3.8 L 06/02/20 06/02/20 06/02/20 05:00 05:37 06:45 WBC RBC Hgb MCV RDW Harper % (Auto) Harper # Seg Neutrophils % Seg Neutrophils # Seg Neutrophils # Man Lymphocytes # (Manual) Eosinophils # (Manual) PT INR ABG pO2 123.5 H ABG HCO3 18.6 L ABG Base Excess -6.2 L ABG Hemoglobin 11.6 L Sodium Potassium Chloride Carbon Dioxide BUN Creatinine Glucose Lactic Acid 5.30 H* 5.30 H* NT-Pro-B Natriuret Pep Albumin 06/03/20 06/03/20 06/03/20 05:01 05:01 05:01 WBC 11.2 H RBC 3.33 L Hgb 10.0 L MCV RDW 18.6 H Harper % (Auto) 8.8 H Harper # 1.0 H Seg Neutrophils % 73.1 H Seg Neutrophils # 8.2 H Seg Neutrophils # Man Lymphocytes # (Manual) Eosinophils # (Manual) PT 15.5 H INR 1.20 H ABG pO2 ABG HCO3 ABG Base Excess ABG Hemoglobin Sodium Potassium Chloride 93.9 L Carbon Dioxide BUN 42 H Creatinine 9.4 H Glucose Lactic Acid NT-Pro-B Natriuret Pep Albumin Chest x-ray: image reviewed (Improved alveolar infiltrates)
[2020-06-03 11:39] LABS: ABG HCO3 26.9 mmol/L (20.0-26.0); ABG Methemoglobin 0.5 % (0.0-1.5); ABG Oxygen Saturation 97.2 % (95.0-99.0); ABG PCO2 43.1 mm Hg; ABG PH 7.412 pH Units (7.350-7.450); ABG PO2 88.7 mm Hg (80.0-90.0)
--- NOTE | 2020-06-03 12:10 | Progress Note ---
Assessment and Plan Acute on chronic respiratory Failure with Hypoxia - Due to volume overload pulm vascular congestion on CXR, - s/p intubation, now extubated - s/p urgent HD, cont nebs -Patient on home O2 HTN, essential and uncontrolled - cont home meds, ESRD - on MWF. -To continue HD as per Renal Tobacco Dependence - pt counseled on cessation - nicotine patch as needed COPD w/o exacerbation, has long h/o smoking - cont nebs as needed, supplemental O2 - need PFT outpt Hyperkalemia, cont to monitor, kayexalate as needed - improved with HD Leukocytosis, reactive, no sepsis Dvt Px, heparin 06/02: extubated, plan for emergent HD 06/03: extubated yesterday, tolerating diet. transfer to [facility] Date of service: 06/03/20 Interval history: Patient seen and examined. Medical records and medication list reviewed. No acute event overnight noted by the RN. Patient denies any chest pain or difficulty breathing. Patient is tolerating diet. Discussed plan of care at bedside with patient. Objective - Exam Narrative Exam: GENERAL: well-developed and well-nourished -[place] female lying on bed appeared to be in no discomfort. HEENT: Normocephalic. Atraumatic. No conjunctival congestion or icterus. Patient has moist mucous membranes. NECK: Supple. Trachea midline. CHEST/LUNGS: Clear to auscultated bilaterally, breathing nonlabored. No wheezes crackles or rhonchi. HEART/CARDIOVASCULAR: Regular in rate and rhythm. S1 and S2 positive. ABDOMEN: Abdomen is soft, nontender. Patient has normal bowel sounds. SKIN: There is no rash. Warm and dry. NEURO: No focal motor deficit. Follows command. MUSCULOSKELETAL: No joint effusion or tenderness. EXTRIMITY: No edema, no cyanosis or clubbing. PSYCH: Cooperative. - Constitutional Vitals: Vital Signs - 12hr 06/03/20 06/03/20 06/03/20 00:16 00:30 00:46 Temperature Pulse Rate 99 H 97 H 97 H Pulse Rate [ From Monitor] Respiratory 20 21 12 Rate Blood Pressure 138/83 138/83 138/83 O2 Sat by Pulse 97 93 97 Oximetry 06/03/20 06/03/20 06/03/20 01:00 01:16 02:00 Temperature Pulse Rate 95 H 95 H 92 H Pulse Rate [ From Monitor] Respiratory 17 19 16 Rate Blood Pressure 141/88 141/88 134/86 O2 Sat by Pulse 97 95 97 Oximetry 06/03/20 06/03/20 06/03/20 03:00 03:49 04:00 Temperature 97.9 F Pulse Rate 92 H 87 86 Pulse Rate [ 86 From Monitor] Respiratory 22 17 Rate Blood Pressure 127/79 132/78 O2 Sat by Pulse 91 96 Oximetry 06/03/20 06/03/20 06/03/20 05:00 06:00 07:00 Temperature Pulse Rate 95 H 85 83 Pulse Rate [ From Monitor] Respiratory 18 17 16 Rate Blood Pressure 137/82 127/76 113/70 O2 Sat by Pulse 98 97 96 Oximetry 06/03/20 06/03/20 06/03/20 08:00 08:14 09:00 Temperature 98.6 F Pulse Rate 95 H 85 Pulse Rate [ 90 From Monitor] Respiratory 16 19 14 Rate Blood Pressure 131/87 117/67 O2 Sat by Pulse 98 99 Oximetry 06/03/20 06/03/20 06/03/20 09:32 10:00 10:07 Temperature Pulse Rate 88 87 Pulse Rate [ From Monitor] Respiratory 23 Rate Blood Pressure 127/75 135/78 O2 Sat by Pulse 96 97 Oximetry 06/03/20 11:00 Temperature Pulse Rate 84 Pulse Rate [ From Monitor] Respiratory 16 Rate Blood Pressure 122/80 O2 Sat by Pulse 99 Oximetry - Labs CBC & Chem 7: 06/03/20 05:01 06/03/20 05:01 Labs: Abnormal lab results 06/03/20 06/03/20 06/03/20 Range/Units 05:01 05:01 05:01 WBC 11.2 H (4.5-11.0) K/mm3 RBC 3.33 L (3.65-5.03) M/mm3 Hgb 10.0 L (10.1-14.3) gm/dl RDW 18.6 H (13.2-15.2) % [place] % (Auto) 8.8 H (0.0-7.3) % [place] # 1.0 H (0.0-0.8) K/mm3 Seg Neutrophils % 73.1 H (40.0-70.0) % Seg Neutrophils # 8.2 H (1.8-7.7) K/mm3 PT 15.5 H (12.2-14.9) Sec. INR 1.20 H (0.87-1.13) ABG HCO3 (20.0-26.0) mmol/L ABG Hemoglobin (12.0-16.0) gm/dl Oxyhemoglobin (95.0-99.0) % Chloride 93.9 L (98-107) mmol/L BUN 42 H (7-17) mg/dL Creatinine 9.4 H (0.6-1.2) mg/dL 06/03/20 Range/Units 11:25 WBC (4.5-11.0) K/mm3 RBC (3.65-5.03) M/mm3 Hgb (10.1-14.3) gm/dl RDW (13.2-15.2) % [place] % (Auto) (0.0-7.3) % [place] # (0.0-0.8) K/mm3 Seg Neutrophils % (40.0-70.0) % Seg Neutrophils # (1.8-7.7) K/mm3 PT (12.2-14.9) Sec. INR (0.87-1.13) ABG HCO3 26.9 H (20.0-26.0) mmol/L ABG Hemoglobin 10.1 L (12.0-16.0) gm/dl Oxyhemoglobin 94.8 L (95.0-99.0) % Chloride (98-107) mmol/L BUN (7-17) mg/dL Creatinine (0.6-1.2) mg/dL HEART Score - HEART Score Troponin: Troponin T < 0.010 ng/mL (0.00-0.029) 06/02/20 03:05
[2020-06-03] MEDS ORDERED: ALBUTEROL 8.5 GM MDI INHALATION IH SCH (12:15)
[2020-06-03] MEDS ORDERED: ALBUTEROL 2.5 MG/3 ML NEBU IH PRN (12:24)
--- NOTE | 2020-06-03 13:39 | XRay Report ---
CHEST 1 VIEW INDICATION: bilateral alveolar infiltrates. COMPARISON: 06/02/2020 FINDINGS: Support devices: Stable positioning of the right permacath. Heart: Stable borderline heart size. Lungs/Pleura: Bilateral infiltrates or congestive changes have resolved since the previous exam. No p leural effusion or pneumothorax. Additional findings: None. IMPRESSION: Bilateral congestive changes or infiltrates have resolved. Signer Name: Luis Davis Jr, MD Signed: 06/03/2020 1:34 PM Workstation Name: [id number]
[2020-06-03] MEDS: ALPRAZolam 0.5 MG TAB PO PRN (19:09)
--- NOTE | 2020-06-03 19:58 | Progress Note ---
Assessment and Plan - Patient Problems (1) Acute respiratory failure with hypoxia Current Visit: Yes Status: Acute Plan to address problem: Stable post extubation. Patient is now on the medical floor. (2) Hyperkalemia Current Visit: Yes Status: Resolved Plan to address problem: Potassium is back to normal. Follow-up (3) Anemia in ESRD (end-stage renal disease) Current Visit: No Status: Chronic Plan to address problem: . Plan to give erythropoietin on dialysis and follow-up Hgb (4) Anxiety Current Visit: No Status: Chronic Plan to address problem: Continue anxiolytic (5) End stage renal disease on dialysis Current Visit: No Status: Chronic Plan to address problem: Hemodialysis Tuesday, Tuesday and Tuesday schedule (6) Hypertensive chronic kidney disease with stage 5 chronic kidney disease or end stage renal disease Current Visit: No Status: Chronic Plan to address problem: Follow-up blood pressure on current medications (7) Metabolic acidosis Current Visit: Yes Status: Acute Plan to address problem: Hemodialysis on a Tue/Tue/Tuesday schwdule. follow-up sodium bicarb (8) GERD (gastroesophageal reflux disease) Current Visit: Yes Status: Acute Plan to address problem: Resume omeprazole and Pepcid. GI follow-up as an outpatient Subjective Date of service: 06/03/20 Principal diagnosis: End-stage renal disease with acute pulmonary edema Interval history: Patient seen lying in bed. Complains of nausea. She is not getting her usual medications for GERD. She is on omeprazole 40 mg twice daily at bedtime prescribed by forging press setter up. She is meant to get a pill capsule. Discussed fluid overload with her. She says she is sometimes poorly adherent to sodium and fluid restriction. Unfortunately they are not able to take of all the fluid during her regular dialysis session. Objective - Exam Narrative Exam: Young -[place] female lying in bed in no acute distress HEENT: NCAT, pink oral mucous membrane Neck: Supple, no venous distention CVS: S1S2 RRR with no murmur, rub or gallop Chest: Clear to auscultation Abdomen: Protuberant, soft, nontender, no organomegaly, bowel sounds are present Extremities: No edema Genitourinary deferred. Skin: Warm and dry Neuro: Awake, alert no focal deficits - Vital Signs Vital signs: Vital Signs - 12hr 06/03/20 06/03/20 06/03/20 08:00 08:14 09:00 Temperature 98.6 F Pulse Rate 83 85 Pulse Rate [ 90 From Monitor] Respiratory 16 19 14 Rate Blood Pressure 131/87 117/67 O2 Sat by Pulse 98 99 Oximetry 06/03/20 06/03/20 06/03/20 09:32 10:00 10:07 Temperature Pulse Rate 88 87 Pulse Rate [ From Monitor] Respiratory 23 Rate Blood Pressure 127/75 135/78 O2 Sat by Pulse 96 97 Oximetry 06/03/20 06/03/20 06/03/20 11:00 12:00 13:00 Temperature 97.9 F Pulse Rate 84 83 86 Pulse Rate [ 93 H From Monitor] Respiratory 16 16 18 Rate Blood Pressure 122/80 132/76 123/78 O2 Sat by Pulse 99 99 95 Oximetry 06/03/20 06/03/20 14:00 15:00 Temperature Pulse Rate 84 78 Pulse Rate [ From Monitor] Respiratory 16 16 Rate Blood Pressure 118/73 118/72 O2 Sat by Pulse 94 96 Oximetry - Lab 06/03/20 05:01 06/03/20 05:01 Most recent lab results ABG pH 7.412 pH Units (7.350-7.450) 06/03/20 11:25 ABG pCO2 43.1 mm Hg 06/03/20 11:25 ABG pO2 88.7 mm Hg (80.0-90.0) 06/03/20 11:25 ABG HCO3 26.9 mmol/L (20.0-26.0) H 06/03/20 11:25 ABG O2 Saturation 97.2 % (95.0-99.0) 06/03/20 11:25 Calcium 8.5 mg/dL (8.4-10.2) 06/03/20 05:01 Medications & Allergies - Medications Allergies/Adverse Reactions: Allergies No Known Allergies Allergy (Verified 10/29/19 03:28) Home Medications: Home Medications Medication Instructions Recorded Confirmed Last Taken Type ALPRAZolam 0.5 mg PO 3XW 10/31/19 06/02/20 05/30/20 10:30 History Citalopram 20 mg PO DAILY 10/31/19 06/02/20 10/27/19 History Lanthanum Carbonate 1,000 mg PO TID 10/31/19 06/02/20 06/01/20 22:00 History Varenicline(Nf) [Chantix (Nf)] 0.5 mg PO DAILY 10/31/19 06/02/20 06/01/20 History traMADoL [Ultram 50 MG tab] 50 mg PO Q6HR PRN #10 tablet 11/01/19 06/02/20 05/30/20 Rx 50 mg Isosorbide Mononitrate 30 mg PO QAM 12/03/19 06/02/20 05/31/20 10:00 History Metoprolol [Lopressor TAB] 50 mg PO DAILY 12/03/19 06/02/20 06/01/20 22:00 History Omeprazole 20 mg PO DAILY 12/03/19 06/02/20 06/01/20 22:00 History Albuterol Sulfate [Proventil Hfa] 6.7 gm IH Q6H #1 hfa.aer.ad 12/05/19 06/02/20 06/01/20 20:00 Rx Divalproex [Dea MOFFETT] 500 mg PO BID 06/02/20 06/02/20 06/01/20 21:00 History HYDROcodone/ACETAMINOPHEN 1 each PO Q6HR 06/02/20 06/02/20 05/30/20 21:00 History [Hydrocodone-Acetamin 5-300 mg] Hydroxyzine HCl [hydrOXYzine] 50 mg PO TID 06/02/20 06/02/20 06/01/20 21:00 History diphenhydrAMINE [Benadryl CAP] 25 mg PO BID 06/02/20 06/02/20 06/01/20 22:00 History Active Medications: Generic Name Dose Route Start Last Admin Trade Name Freq PRN Reason Stop Dose Admin Acetaminophen/Hydrocodone Bitart 1 each 06/02/20 21:52 06/03/20 08:14 [place] 5/325 PO 1 each Q6H PRN Administration Pain, Moderate (4-6) Albuterol 2.5 mg 06/03/20 12:24 Proventil IH Q4HRT PRN Shortness Of Breath Alprazolam 0.5 mg 06/02/20 17:12 06/03/20 19:09 Xanax PO 0.5 mg Q6H PRN Administration Agitation Citalopram Hydrobromide 20 mg 06/03/20 10:00 06/03/20 09:32 Celexa PO 20 mg QDAY RYLIE Administration Diphenhydramine HCl 25 mg 06/02/20 22:00 Benadryl PO BID PRN Itching Divalproex Sodium 500 mg 06/03/20 22:[address] PO BID RYLIE Epoetin Perfecto 10,000 unit 06/02/20 07:16 06/02/20 09:24 Procrit IV 10,000 unit LEWIS PRN Administration hemodialysis Famotidine 20 mg 06/02/20 10:00 06/03/20 09:34 Pepcid PO 20 mg DAILY RYLIE Administration Heparin Sodium (Porcine) 5,000 unit 06/02/20 06:00 06/03/20 15:00 Heparin SUB-Q 5,000 unit Q8HR RYLIE Administration Hydroxyzine Pamoate 50 mg 06/02/20 22:00 06/03/20 15:00 Vistaril PO 50 mg TID RYLIE Administration Sodium Chloride 100 mls @ 999 mls/hr 06/02/20 07:16 Nacl 0.9% IV LEWIS PRN Hypotension Isosorbide Mononitrate 30 mg 06/03/20 10:00 06/03/20 09:34 Imdur PO 30 mg DAILY [facility] Administration Lamotrigine 25 mg 06/02/20 18:00 06/03/20 09:35 Lamictal PO Not Given QDAY RYLIE Lanthanum Carbonate 1,000 mg 06/02/20 20:00 06/03/20 15:00 Fosrenol PO 1,000 mg TID RYLIE Administration Megestrol Acetate 20 mg 06/02/20 18:00 06/03/20 15:05 Megestrol PO Not Given QID RYLIE Metoprolol Tartrate 50 mg 06/03/20 10:00 06/03/20 09:32 Metoprolol PO 50 mg DAILY [facility] Administration Morphine Sulfate 2 mg 06/02/20 05:42 06/02/20 17:58 Morphine IV 2 mg Q4H PRN Administration Pain, (7-10) Sodium Chloride 10 ml 06/02/20 10:00 06/03/20 09:34 Sodium Chloride Flush Syringe 10 Ml IV 10 ml BID RYLIE Administration Sodium Chloride 10 ml 06/02/20 05:42 Sodium Chloride Flush Syringe 10 Ml IV PRN PRN LINE FLUSH Tramadol HCl 50 mg 06/02/20 17:11 Ultram PO Q6H PRN Pain, Moderate (4-6)
[2020-06-03] MEDS: DIVALPROEX DR 500 MG TAB PO SCH (21:48)
[2020-06-04] MEDS: HEPARIN 5,000 UNIT/1 ML VIAL SUB-Q SCH ×2 (05:08→16:01)
[2020-06-04] MEDS: METOPROLOL TARTRATE 50 MG TAB PO SCH (09:13)
[2020-06-04] MEDS: FAMOTIDINE 20 MG TAB PO SCH (09:13)
[2020-06-04] MEDS: CITALOPRAM 20 MG TAB PO SCH (09:13)
[2020-06-04] MEDS: DIVALPROEX DR 500 MG TAB PO SCH (09:14)
[2020-06-04] MEDS: lamoTRIgine 25 MG TAB PO SCH (09:15)
[2020-06-04] MEDS: MEGESTROL 20 MG TAB PO SCH ×2 (09:15→15:42)
[2020-06-04] MEDS: HYDROcodone/ACETAMINOPHEN 5-325 MG TAB PO PRN ×2 (09:28→16:00)
[2020-06-04] MEDS ORDERED: SODIUM CHLORIDE 0.9% 100 ML IV PRN (12:15)
[2020-06-04] MEDS: LANTHANUM CARBONATE 500 MG TAB PO SCH ×2 (13:57→16:00)
--- NOTE | 2020-06-04 14:01 | Progress Note ---
Assessment and Plan Patient alert, awake. Patient receiving hemodialysis. O2 2 litres via nasal canula. O2 saturation 100%. No acute respiratory distress. Patient afebrile. No leukocytosis. Chest xray done 06/03/20 reported Bilateral congestive changes or infiltrates have resolved. Patient says she is on home O2. Patient can Can come to my office as out patient for pulmonary follow up in 4 to 6 weeks. - Patient Problems (1) Acute respiratory failure with hypoxia Current Visit: Yes Status: Acute Plan to address problem: O2 saturation running 100% on 2 litres O2. Patient said she has home O2 2 litres. (2) Acute heart failure with preserved ejection fraction (HFpEF) Current Visit: No Status: Acute Plan to address problem: Management as per cardiology. (3) ESRD needing dialysis Current Visit: Yes Status: Acute Plan to address problem: Patient receiving hemodialysis. Management as per nephrology. (4) GERD (gastroesophageal reflux disease) Current Visit: Yes Status: Acute Plan to address problem: Patient is on Famotidine. (5) Tobacco use Current Visit: No Status: Chronic Plan to address problem: Counseled to stop smoking. Recommend PFTs as patient. Subjective Date of service: 06/04/20 Principal diagnosis: End-stage renal disease with acute pulmonary edema Interval history: Patient alert, awake. Patient receiving hemodialysis. O2 2 litres via nasal canula. O2 saturation 100%. No acute respiratory distress. Patient afebrile. No leukocytosis. Chest xray done 06/03/20 reported Bilateral congestive changes or infiltrates have resolved. Patient says she is on home O2. Patient can Can come to my office as out patient for pulmonary follow up in 4 to 6 weeks. Objective Vital Signs - 12hr 06/04/20 06/04/20 06/04/20 04:00 08:00 09:13 Temperature 98.5 F 98.2 F Pulse Rate 85 85 85 Respiratory 16 18 Rate Blood Pressure 128/80 128/80 Blood Pressure 121/76 [Right] O2 Sat by Pulse 100 100 Oximetry Constitutional: no acute distress, alert, other (Patient receiving hemodialysis.) Eyes: non-icteric ENT: oropharynx moist Neck: supple, no lymphadenopathy, no JVD Effort: normal Ascultation: Bilateral: diminished breath sounds, rales Cardiovascular: regular rate and rhythm, other (S1,S2, ) Gastrointestinal: normoactive bowel sounds, hypoactive bowel sounds, non-tender Integumentary: normal Neurologic: normal mental status, non-focal exam, pupils equal and round, CN II- XII normal, motor strength normal and Psychiatric: mood appropriate, affect normal CBC and BMP: 06/03/20 05:01 06/03/20 05:01 ABG, PT/INR, D-dimer: ABG ABG pH 7.412 pH Units (7.350-7.450) 06/03/20 11:25 ABG pCO2 43.1 mm Hg 06/03/20 11:25 ABG pO2 88.7 mm Hg (80.0-90.0) 06/03/20 11:25 ABG O2 Saturation 97.2 % (95.0-99.0) 06/03/20 11:25 PT/INR, D-dimer PT 15.5 Sec. (12.2-14.9) H 06/03/20 05:01 INR 1.20 (0.87-1.13) H 06/03/20 05:01 Abnormal lab findings: Abnormal Labs 06/02/20 06/02/20 06/02/20 03:05 03:05 04:08 WBC 18.0 H RBC Hgb MCV 98 H RDW 19.2 H [place] % (Auto) [place] # Seg Neutrophils % Seg Neutrophils # Seg Neutrophils # Man 10.4 H Lymphocytes # (Manual) 6.3 H Eosinophils # (Manual) 0.5 H PT INR ABG pO2 ABG HCO3 ABG Base Excess ABG Hemoglobin Oxyhemoglobin Sodium 133 L Potassium 5.5 H Chloride 86.2 L Carbon Dioxide 14 L BUN 53 H Creatinine 11.7 H Glucose 291 H Lactic Acid 9.50 H* NT-Pro-B Natriuret Pep 66240 H Albumin 3.8 L 06/02/20 06/02/20 06/02/20 05:00 05:37 06:45 WBC RBC Hgb MCV RDW [place] % (Auto) [place] # Seg Neutrophils % Seg Neutrophils # Seg Neutrophils # Man Lymphocytes # (Manual) Eosinophils # (Manual) PT INR ABG pO2 123.5 H ABG HCO3 18.6 L ABG Base Excess -6.2 L ABG Hemoglobin 11.6 L Oxyhemoglobin Sodium Potassium Chloride Carbon Dioxide BUN Creatinine Glucose Lactic Acid 5.30 H* 5.30 H* NT-Pro-B Natriuret Pep Albumin 06/03/20 06/03/20 06/03/20 05:01 05:01 05:01 WBC 11.2 H RBC 3.33 L Hgb 10.0 L MCV RDW 18.6 H [place] % (Auto) 8.8 H [place] # 1.0 H Seg Neutrophils % 73.1 H Seg Neutrophils # 8.2 H Seg Neutrophils # Man Lymphocytes # (Manual) Eosinophils # (Manual) PT 15.5 H INR 1.20 H ABG pO2 ABG HCO3 ABG Base Excess ABG Hemoglobin Oxyhemoglobin Sodium Potassium Chloride 93.9 L Carbon Dioxide BUN 42 H Creatinine 9.4 H Glucose Lactic Acid NT-Pro-B Natriuret Pep Albumin 06/03/20 11:25 WBC RBC Hgb MCV RDW [place] % (Auto) [place] # Seg Neutrophils % Seg Neutrophils # Seg Neutrophils # Man Lymphocytes # (Manual) Eosinophils # (Manual) PT INR ABG pO2 ABG HCO3 26.9 H ABG Base Excess ABG Hemoglobin 10.1 L Oxyhemoglobin 94.8 L Sodium Potassium Chloride Carbon Dioxide BUN Creatinine Glucose Lactic Acid NT-Pro-B Natriuret Pep Albumin Chest x-ray: report reviewed, image reviewed Additional Studies: CHEST 1 VIEW 06/03/20 INDICATION: bilateral alveolar infiltrates. COMPARISON: 06/02/2020 FINDINGS: Support devices: Stable positioning of the right permacath. Heart: Stable borderline heart size. Lungs/Pleura: Bilateral infiltrates or congestive changes have resolved since the previous exam. No pleural effusion or pneumothorax. Additional findings: None. IMPRESSION: Bilateral congestive changes or infiltrates have resolved.
[2020-06-04] MEDS: EPOETIN ALFA 10,000 UNIT/1 ML INJ IV PRN (15:15)
--- NOTE | 2020-06-04 15:15 | Discharge Summary ---
Providers - Providers Date of Admission: 06/02/20 04:33 Date of discharge: 06/04/20 Attending physician: TITUS NINA 06/02/20 04:24 Consult to Physician [CONS] Stat Comment: Dr. Santizo spoke with Dr. Cosby @ [id number] Consulting Provider: ASHLEY COSBY Physician Instructions: Reason For Exam: dialysis 06/02/20 05:43 Consult to Dietitian/Nutrition [CONS] Routine Physician Instructions: Reason For Exam: Reason for Consult: Diet education 06/02/20 06:14 Consult to Physician [CONS] Routine Comment: Spoke with Dr. Gay @ [phone] Consulting Provider: CAITY MEYER Physician Instructions: Reason For Exam: ESRD,ACUTE RESPIRATORY FAILURE-INTUBATED Primary care physician: LICENSED ESTHETICIAN Hospitalization Condition: Stable Pertinent studies: CXR Hospital course: Patient is a 39-year-old female with known history of end-stage renal disease on dialysis was brought into the emergency room in respiratory distress. O2 saturation in route to the hospital according to EMS was 90% on room air. Patient was said to be tachycardic with a heart rate of about 150 and blood pressure was not obtainable. Patient subsequently intubated in the emergency room. Work-up in the emergency room revealed leukocytosis of about 18. Hyperkalemia of about 5.5 and chest x-ray revealed pulmonary edema. Patient also placed on empiric IV antibiotics, Nephrology consulted, had emergent HD Patient was eventually extubated, she was tolerating diet. Patient already has home oxygen set up. Patient stated that she may not be compliant with the water restriction. Patient counseled on dietary and water restriction and regular hemodialysis She verbalized understanding. Patient is clinically stable for discharge Patient will continue routine hemodialysis as outpatient. Daily course; 06/02: extubated, plan for emergent HD 06/03: extubated yesterday, tolerating diet. transfer to tele 06/04: clinically stable, d/c home after HD Discharge diagnosis: Acute on chronic respiratory Failure with Hypoxia - Due to volume overload pulm vascular congestion on CXR, - s/p intubation, now extubated - s/p urgent HD, -Patient on home O2 HTN, essential and uncontrolled - cont home meds, ESRD - on MWF. -To continue HD as per Renal Tobacco Dependence - pt counseled on cessation COPD w/o exacerbation, has long h/o smoking - cont nebs as needed, supplemental O2 - need PFT outpt Hyperkalemia, cont to monitor, kayexalate as needed - improved with HD Leukocytosis, reactive, no sepsis Dvt Px, heparin Disposition: [id number] HOME UNDER HOME HL Time spent for discharge: 34 minutes Core Measure Documentation - Palliative Care Palliative Care/ Comfort Measures: Not Applicable - Core Measures Any of the following diagnoses?: none Exam - Physical Exam Narrative exam: GENERAL: well-developed and well-nourished -[place] female lying on bed appeared to be in no discomfort. HEENT: Normocephalic. Atraumatic. No conjunctival congestion or icterus. Patient has moist mucous membranes. NECK: Supple. Trachea midline. CHEST/LUNGS: Clear to auscultated bilaterally, breathing nonlabored. No wheezes crackles or rhonchi. HEART/CARDIOVASCULAR: Regular in rate and rhythm. S1 and S2 positive. ABDOMEN: Abdomen is soft, nontender. Patient has normal bowel sounds. SKIN: There is no rash. Warm and dry. NEURO: No focal motor deficit. Follows command. MUSCULOSKELETAL: No joint effusion or tenderness. EXTRIMITY: No edema, no cyanosis or clubbing. PSYCH: Cooperative. - Constitutional Vitals: Temp Pulse Resp BP Pulse Ox 98.2 F 85 18 128/80 100 06/04/20 08:00 06/04/20 09:13 06/04/20 08:00 06/04/20 09:13 06/04/20 08:00 Plan Activity: advance as tolerated Weight Bearing Status: Weight Bear as Tolerated Diet: renal Special Instructions: restrict fluid intake to (1.2L per day) Additional Instructions: Follow-up with pulmonary in 2-4 weeks Follow up with: MARIAN KNOWLES MD [Primary Care Provider] - 3-5 Days GARY WASHINGTON MD [Staff Physician] - 7 Days
[2020-06-04] MEDS: ALPRAZolam 0.5 MG TAB PO PRN (16:10)
[2020-06-04 18:03] VITALS: BP 119/78
== END 2020-06-04 16:43 | disposition home or self-care (01) | DRG 208 ==
LOC: ED 02:28 → CC1 04:33 → 4A 06-03 16:05
PROVIDERS: ADMIT Internal Medicine Geriatric Medicine; ATTEND Internal Medicine
PROC: 5A1935Z Respiratory Ventilation, Less than 24 Consecutive Hours (ICD-10-PCS; principal; 2020-06-02)
PROC: 0BH17EZ Insertion of Endotracheal Airway into Trachea, Via Natural or Artificial Opening (ICD-10-PCS; 2020-06-02)
PROC: 5A1D70Z Performance of Urinary Filtration, Intermittent, Less than 6 Hours Per Day (ICD-10-PCS; 2020-06-04)
DX: J96.21 Acute and chronic respiratory failure with hypoxia (principal); N18.6 End stage renal disease; I50.31 Acute diastolic (congestive) heart failure; I16.1 Hypertensive emergency; I13.2 Hypertensive heart and chronic kidney disease with heart failure and with stage 5 chronic kidney disease, or end stage renal disease; R65.10 Systemic inflammatory response syndrome (SIRS) of non-infectious origin without acute organ dysfunction; Z99.11 Dependence on respirator [ventilator] status; E87.2 Acidosis; E87.5 Hyperkalemia; J44.9 Chronic obstructive pulmonary disease, unspecified; Z99.2 Dependence on renal dialysis; I25.2 Old myocardial infarction; I25.10 Atherosclerotic heart disease of native coronary artery without angina pectoris; D72.829 Elevated white blood cell count, unspecified; R79.89 Other specified abnormal findings of blood chemistry; D63.1 Anemia in chronic kidney disease; F41.9 Anxiety disorder, unspecified; F17.200 Nicotine dependence, unspecified, uncomplicated; K21.9 Gastro-esophageal reflux disease without esophagitis
CPT/HCPCS: 31500; 36415; 36600; 71045; 80048; 80074; 80076; 82140; 82803; 82962; 83880; 84484; 84703; 85007; 85025; 85610; 85730; 87040; 93005; 94002; 94003; 94760; 96374; 96375; G0378; J0330; J0692; J0885; J1644; J1815; J2270; J2704; J3370; Q0177